=== PATIENT | male | born 1970 | race Caucasian/White ===

== ENCOUNTER 2022-05-27 08:26 | Outpatient (CLI) | payer OTHER, SELFPAY ==
[2022-05-27 13:53] LABS: Chloride* 101 mmol/L (96-114); Sodium* 140 mmol/L (135-149)
[2022-05-27 13:54] LABS: Potassium* 4.5 mmol/L (3.6-5.1)
[2022-05-27 13:56] LABS: Carbon Dioxide* 31 mmol/L (20-32); Creatinine* 1.1 mg/dL (0.5-1.5); Estimated Glomerular Filt Rate 80 ml/min
[2022-05-27 13:57] LABS: Blood Urea Nitrogen* 19 mg/dL (7-30); Calcium* 9.7 mg/dL (8.4-10.6); Glucose* 97 mg/dL (60-115)
== END 2022-05-27 08:27 | disposition home or self-care (01) ==
LOC: LKVREF 08:26
PROVIDERS: PCP Physician Assistant Medical; Visit Provider Emergency Medicine
DX: Z01.818 Encounter for other preprocedural examination (principal)
CPT/HCPCS: 80048

== ENCOUNTER 2022-06-04 09:15 | Outpatient (CLI) | payer OTHER, SELFPAY ==
--- NOTE | 2022-06-04 10:45 | W.ANESCHARGE ---
Anesthesia Charges Start Date/Time Anesthesia Start Date: 06/04/22 Anesthesia Start Time: 10:05 Stop Date/Time Anesthesia Stop Date: 06/04/22 Anesthesia Stop Time: 10:42 Summary Emergency: No
--- NOTE | 2022-06-04 14:43 | W.ANESCHARGE ---
Anesthesia Charges Start Date/Time Anesthesia Start Date: 06/04/22 Anesthesia Start Time: 10:05 Stop Date/Time Anesthesia Stop Date: 06/04/22 Anesthesia Stop Time: 10:42 Summary Emergency: No
== END 2022-06-04 09:16 | disposition home or self-care (01) ==
LOC: OP CLINIC 09:17
PROVIDERS: PCP Physician Assistant Medical; Visit Provider Surgery
DX: Z12.11 Encounter for screening for malignant neoplasm of colon (principal); K63.5 Polyp of colon; Z86.010 Personal history of colon polyps
CPT/HCPCS: 00811; 45385; 88305; J2704

== ENCOUNTER 2022-11-26 09:14 | Outpatient (CLI) | payer OTHER, SELFPAY | END 2022-11-26 09:15 | disposition home or self-care (01) | LOC: NFLDREF 11-28 08:39 | PROVIDERS: PCP Physician Assistant Medical; Referring Provider Physician Assistant Medical; Visit Provider Physician Assistant Medical | DX: Z00.00 Encounter for general adult medical examination without abnormal findings (principal); R73.03 Prediabetes; Z13.6 Encounter for screening for cardiovascular disorders; Z12.5 Encounter for screening for malignant neoplasm of prostate | CPT/HCPCS: 80053; 80061; 82043; 82570; 84153 ==

== ENCOUNTER 2024-01-17 08:34 | Outpatient (CLI) | payer OTHER, SELFPAY | END 2024-01-17 08:35 | disposition home or self-care (01) | LOC: NFLDREF 01-19 04:41 | PROVIDERS: PCP Physician Assistant Medical; Referring Provider Physician Assistant Medical; Visit Provider Physician Assistant Medical | DX: Z00.00 Encounter for general adult medical examination without abnormal findings (principal); E78.5 Hyperlipidemia, unspecified; I10 Essential (primary) hypertension; R73.03 Prediabetes | CPT/HCPCS: 80053; 80061 ==

== ENCOUNTER 2024-01-26 13:10 | Outpatient (CLI) | payer OTHER, SELFPAY | END 2024-01-26 13:11 | disposition home or self-care (01) | PROVIDERS: PCP Physician Assistant Medical; Visit Provider Physician Assistant Medical | DX: Z00.00 Encounter for general adult medical examination without abnormal findings (principal); R68.82 Decreased libido; R74.01 Elevation of levels of liver transaminase levels; I10 Essential (primary) hypertension; K76.0 Fatty (change of) liver, not elsewhere classified; M25.50 Pain in unspecified joint; Z12.5 Encounter for screening for malignant neoplasm of prostate | CPT/HCPCS: 84443; 84550; G0103 ==

== ENCOUNTER 2024-05-31 12:01 | Outpatient (CLI) | payer OTHER, SELFPAY | END 2024-05-31 12:02 | disposition home or self-care (01) | LOC: LKVREF 12:02 | PROVIDERS: PCP Physician Assistant Medical; Visit Provider Physician Assistant Medical | DX: M25.469 Effusion, unspecified knee (principal); I25.10 Atherosclerotic heart disease of native coronary artery without angina pectoris; R68.82 Decreased libido; R74.01 Elevation of levels of liver transaminase levels; R73.03 Prediabetes; I10 Essential (primary) hypertension | CPT/HCPCS: 84484; 84550 ==

== ENCOUNTER 2024-06-13 08:22 | Outpatient (CLI) | payer OTHER, SELFPAY | END 2024-06-13 08:23 | disposition home or self-care (01) | LOC: NFLDREF 06-17 18:00 | PROVIDERS: PCP Physician Assistant Medical; Referring Provider Physician Assistant Medical; Visit Provider Physician Assistant Medical | DX: E78.5 Hyperlipidemia, unspecified (principal); I10 Essential (primary) hypertension | CPT/HCPCS: 80053; 80061 ==

== ENCOUNTER 2024-08-16 19:33 | Outpatient (CLI) | payer OTHER, SELFPAY ==
--- NOTE | 2024-08-29 12:22 | W.PM.SLEEP ---
Sleep Study Details Details Interpreting Provider: Wm Date of Sleep Study: 08/16/24 Sleep Study Details: STUDY TYPE:? Home unattended ? BMI:? 31 ORDERING PROVIDER:Darling Tavera INDICATION:? Concerned about sleep apnea ? SLEEP SUMMARY:? 457 minutes monitored RESPIRATORY SUMMARY:? AHI 32.3. Note the majority of the study was done in the supine position Low oxygen 79 6.1% of study oxygen less than 90% Snoring 75.8% PERIODIC LIMB MOVEMENTS OF SLEEP:? Not recorded CARDIAC:? Range 53-96, mean 73.8 beats per minute IMPRESSION:? Severe obstructive sleep apnea RECOMMENDATION: Treatment options include CPAP, dental appliance and/or airway expansion surgery. CPAP is most likely to be effective.
== END 2024-08-16 19:34 | disposition home or self-care (01) ==
LOC: SLEEP 19:36
PROVIDERS: PCP Physician Assistant Medical; Visit Provider Physician Assistant Medical
DX: G47.33 Obstructive sleep apnea (adult) (pediatric) (principal)
CPT/HCPCS: 95806

== ENCOUNTER 2024-09-03 03:36 | Emergency (ER) | payer OTHER, SELFPAY ==
[2024-09-03 03:39] VITALS: BP 125/85; PULSE 73; RESP 16; TEMP 36.1; O2SAT 96; BMI 28.2
--- OUTSIDE RECORDS SUMMARY | 2024-09-03 03:39 | XMS_ITS | Continuity of Care Document ---
Author Organization [facility] Address [address] [address] [place] [address] Phone Care Team Providers Care Shingle Bolt Cutter Name Role Phone Fozia Simon MD Unavailable Unavaila ble Allergies, Adverse Reactions, Alerts Substance Reaction Status Criticality Penicillins Active No Information Medications Medication Instructions Dosage Effective Dates (start - stop) Status Comments omeprazole 40 mg capsule,delayed release take 1 capsule by ORAL route every day before a meal 40 MG - Active needs office visit for refills Propecia 1 mg tablet take 1 tablet by oral route every day 1 MG - Active omeprazole 40 mg capsule,delayed release take 1 capsule by ORAL route every day before a meal 40 MG - No Longer Active Procedures Procedure Date Offic/outpt E&m [facility] Advance Directives Directive Yes / No Effective Date File Name No Information Encounters Encounter Description Practice Location Reason(s) For Visit Diagnoses Date Provider Providers Copied on Encounter [facility], [address] [address], [place], [id number], [place] tel:[phone] [facility] No Information [address] [facility] [address] [facility], [place], [id number] , [place]. tel:[phone] Offic/outpt E&m [facility], [address] [address], [place], [id number], [place] tel:[phone] [facility] GI Symptoms or Concerns (chief complaint) Chronic GERDSleep apnea in adultDietary counseling and surveillanceEssentia l (primary) hypertension [facility] [address] [facility], [place], [place], [id number] , [place]. tel:[phone] Referring Provider: Kendall Carmona MD, [address] [place], [address]. tel:[phone] Family History Family Member Type Diagnosis Age At Onset Daughter Problem (finding) Alive and well Mother Problem (finding) malignant neoplasm of o vary Son Problem (finding) Alive and well Brother Problem (finding) Alive and well Payers Payer name Insurance type Covered democrat ID Rosario clark(s) [employer] CI [id number] Social History Type Description Quantity Date Captured Comments Alcohol Use Details Unknown Caffeine Use Details Unknown Tobacco Use Status No Information Smoking Status No Information Sex Male Chief Complaint And Reason For Visit No Information Reason For Referral Reason For Referral No Information Plan Of Treatment Date Type Action Status Goal Lifestyle education jamesin g diet completed History Of Present Illness Encounter Date Complaint History Of Prese nt Illness GI Symptoms or Concerns Raf ayala is a pleasant 46-year-old male with history of obesity, sleep apnea, atrial fibrillation, hypertension, and colon polyps, whom I saw in clinic today in referral for reflux symptoms. He has had reflux symptoms for about the past year. However, he thinks his symptoms have gotten worse since the spring. The spring, he was diagnosed with a number of medical conditions. Initially, he had bronchitis, but then was subsequently diagnosed with influenza. He also developed atrial fibrillation. He also developed staph infection in one of his arms that required antibiotics. He has also had a sleep study that showed sleep apnea. This occurred after he fell asleep on a bus and somebody told him his snoring sounded like there was something loose flapping around in the back of his throat.With his reflux symptoms, he describes heartburn and regurgitation. The regurgitation occurs if he eats spicy food and too close to time he goes to bed. With this, he wakes up coughing. He Functional Status Date Functional Assessmen t No Information Instructions Date Instruction Additional Infor [place] 1. Increase omeprazo le to 40 mg daily.2. Pepcid as needed.3. Follow up in three months.4. Encouraged weight loss and avoiding eating before going to bed by two to three hours.5. Reflux handout given.6. If 40 mg daily is not helpful, then I will increase it to twice-daily dosing.Thank you for allowing me to participate in the care of your patient. Please feel free to call with any questions or concerns. Related to Chronic GERD gerd Related to Sleep apnea in adult Lifestyle education regarding di et Related to Dietary counseling and surveillance Assessments Type Assessment Date No Information Patient Care Teams Name Effective Dates (start - stop) Status Members No Information
--- OUTSIDE RECORDS SUMMARY | 2024-09-03 03:39 | XMS_ITS | Clinical Summary ---
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 Active metFORMIN (GLUCOPHAGE XR) 500 mg Extended-Release tablet Take 1,000 mg by mouth once daily. Active omeprazole (PRILOSEC) 20 mg Delayed-Release capsule Take 20 mg by mouth once daily. Active ticagrelor (BRILINTA) 90 mg tabletIndications:S T elevation myocardial infarction (STEMI) involving other coronary artery of inferior wall (HC) Take 1 Tablet (90 mg) by mouth two times daily. 180 Tablet 3 05/25/2024 9:56 AM CDT 4 Active aspirin chewable 81 mg chewable tabletIndications:S T elevation myocardial infarction (STEMI) involving other coronary artery of inferior wall (HC) Chew 1 Tablet (81 mg) by mouth once daily with a meal. 90 Tablet 3 05/25/2024 9:56 AM CDT 4 Active rosuvastatin (CRESTOR) 20 mg tabletIndications:S T elevation myocardial infarction (STEMI) involving other coronary artery of inferior wall (HC),Dyslipidemia Take 1 Tablet (20 mg) by mouth once daily with evening meal. 90 Tablet 3 05/25/2024 12:58 PM CDT 4 Active nitroglycerin (NITROSTAT) 0.4 mg sublingual tabletIndications:S T elevation myocardial infarction (STEMI) involving other coronary artery of inferior wall (HC),CAD, multiple vessel Place 1 Tablet (0.4 mg) under the tongue every 5 minutes if needed for Chest Pain. Up to 3 tablets in 15 minutes. 25 Tablet 3 05/25/2024 12:58 PM CDT 4 Active dapagliflozin propanediol (Farxiga) 10 mg tabletIndications:S T elevation myocardial infarction (STEMI) involving other coronary artery of inferior wall (HC),CAD, multiple vessel Take 1 Tablet (10 mg) by mouth once daily. 90 Tablet 3 4 Active isosorbide mononitrate (IMDUR) 30 mg extended release tablet 24 HourIndications:ST elevation myocardial infarction (STEMI) involving other coronary artery of inferior wall (HC),CAD, multiple vessel Take 1 Tablet (30 mg) by mouth once daily. 90 Tablet 3 4 Active metoprolol succinate (TOPROL XL) 100 mg Sustained-Release tabletIndications:S T elevation myocardial infarction (STEMI) involving other coronary artery of inferior wall (HC),CAD, multiple vessel Take 1 Tablet (100 mg) by mouth once daily. 90 Tablet 3 4 Active valsartan (DIOVAN) 80 mg tabletIndications:C AD, multiple vessel,Ischemic cardiomyopathy Take 1 Tablet (80 mg) by mouth once daily. 90 Tablet 3 4 Active mupirocin 2% ointmentIndications :Coronary artery disease involving [place] coronary artery of [place] heart with unstable angina pectoris (HC) Using Q-tip, apply small amount to both nostrils evening before and morning of surgery 22 g 5 Active chlorhexidine (Peridex) 0.12 % solutionIndications :Coronary artery disease involving [place] coronary artery of [place] heart with unstable angina pectoris (HC) Swish and spit 15 ml by mouth the night before and on the morning of surgery 118 mL 5 Active ofloxacin 0.3 % ophthalmic (OCUFLOX) 0.3 % ophthalmic solution INSTILL 1 DROP IN LEFT EYE THREE TIMES DAILY 5 Active Active Problems Problem Noted Date Diagnosed Date Ischemic cardiomyopathy 05/25/2024 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 05/24/2024 HTN (hypertension) 05/24/2024 Obesity 05/24/2024 Type 2 diabetes mellitus, wi thout long-term current use of insulin 05/24/2024 ST elevation myocardial infa rction involving right coronary artery 05/23/2024 Paroxysmal atrial fibrillation 02/08/2017 Candidiasis of mouth 08/02/2005 Dyslipidemia 08/02/2002 Overview (04/19/2006): 6 month, then qiut Alopecia, unspecified 08/02/1999 Encounters Date Type Department Care Team Description 08/30/2024 1:00 PM RESIDENCE LIFE DIRECTOR - 08/30/2024 11:59 PM RESIDENCE LIFE DIRECTOR Hospital Encounter [address] [address] 08/30/2024 Travel 08/29/2024 Hospital Encounter [facility] [address] [place] [address] Som Diaz MD 08/25/2024 7:30 AM RESIDENCE LIFE DIRECTOR - 08/25/2024 11:59 PM RESIDENCE LIFE DIRECTOR Hospital Encounter [address] [address] 08/25/2024 Telephone [facility] [address] [place] [address] Som Diaz MD Surgery Scheduled (Cancel / to reschedule) 08/24/2024 Telephone [facility] [address] [place] [address] Willis Taveras PA Results 08/24/2024 Telephone [facility] [address] [place] [address] Som Diaz MD Form (FMLA) 08/23/2024 1:30 PM RESIDENCE LIFE DIRECTOR Nurse/Clinic Staff Only [facility] [address] [place] [id number] Cardiovascular Diagnostic Testing (EKG was performed for consult with Dr. Diaz.) 08/23/2024 1:00 PM RESIDENCE LIFE DIRECTOR Office Visit [facility] [address] [place] [address] Som Diaz MD Consult (Patient reports he got eye infection in left eye and went to eye doctor on wednesday (08/21), eye doctor wondering if patient can take prednisone eye drop. ) 08/23/2024 7:30 AM RESIDENCE LIFE DIRECTOR - 08/23/2024 11:59 PM RESIDENCE LIFE DIRECTOR Hospital Encounter [address] [address] 08/23/2024 Travel 08/21/2024 Orders Only [facility] Scanner 1 scan: (1-Ord) [facility], 08/21/2024 08/21/2024 Telephone [facility] [address] [place] [address] Som Diaz MD Questions 08/18/2024 7:30 AM RESIDENCE LIFE DIRECTOR - 08/18/2024 11:59 PM RESIDENCE LIFE DIRECTOR Hospital Encounter [address] [address] 08/17/2024 8:57 AM RESIDENCE LIFE DIRECTOR - 08/17/2024 11:59 PM RESIDENCE LIFE DIRECTOR Hospital Encounter [facility] [address] [place] [address] Erika Contreras PA CAD, multiple vessel 08/17/2024 8:23 AM RESIDENCE LIFE DIRECTOR - 08/17/2024 8:56 AM RESIDENCE LIFE DIRECTOR Hospital Encounter [facility] [address] [place] [address] Som Diaz MD Coronary artery disease involving clark's [place] coronary artery of [place] heart with unstable angina pectoris (HC) 08/17/2024 7:45 AM RESIDENCE LIFE DIRECTOR - 08/17/2024 8:22 AM RESIDENCE LIFE DIRECTOR Hospital Encounter [facility] [address] [place] [address] Erika Contreras PA CAD, multiple vessel; Ischemic cardiomyopathy 08/17/2024 Travel 08/14/2024 7:30 AM RESIDENCE LIFE DIRECTOR - 08/14/2024 11:59 PM RESIDENCE LIFE DIRECTOR Hospital Encounter [place] [address] [address] [address] [address] 08/11/2024 7:30 AM RESIDENCE LIFE DIRECTOR - 08/11/2024 11:59 PM RESIDENCE LIFE DIRECTOR Hospital Encounter [place] [address] [facility] [place] [address] 08/09/2024 7:30 AM RESIDENCE LIFE DIRECTOR - 08/09/2024 11:59 PM RESIDENCE LIFE DIRECTOR Hospital Encounter [place] [address] [facility] [place] [address] 08/09/2024 Travel 08/04/2024 2:00 PM RESIDENCE LIFE DIRECTOR - 08/04/2024 11:59 PM RESIDENCE LIFE DIRECTOR Hospital Encounter [place] [address] [facility] [place] [address] 07/31/2024 7:30 AM RESIDENCE LIFE DIRECTOR - 07/31/2024 11:59 PM RESIDENCE LIFE DIRECTOR Hospital Encounter [place] [address] [place] [address] 07/31/2024 Telephone [facility] [address] [place] [address] Som Diaz MD Surgery Scheduled (Pre cardiac surgery planning) 07/28/2024 7:27 AM RESIDENCE LIFE DIRECTOR - 07/28/2024 11:59 PM RESIDENCE LIFE DIRECTOR Hospital [facility] [place] [address] [facility] [place] [address] 07/28/2024 Orders Only [facility] [address] [place] [address] Som Diaz MD <No scans attached> 07/20/2024 2:00 PM RESIDENCE LIFE DIRECTOR Telemedicine [facility] [address] [place] [address] Erika Contreras PA Follow Up 07/17/2024 7:30 AM RESIDENCE LIFE DIRECTOR - 07/17/2024 11:59 PM RESIDENCE LIFE DIRECTOR Hospital Encounter [place] [address] [place] [address] 06/28/2024 7:30 AM RESIDENCE LIFE DIRECTOR - 06/28/2024 11:59 PM RESIDENCE LIFE DIRECTOR Hospital Encounter [place] [address] [place] [address] 06/26/2024 7:30 AM RESIDENCE LIFE DIRECTOR - 06/26/2024 11:59 PM RESIDENCE LIFE DIRECTOR Hospital Encounter [place] [address] [place] [address] 06/23/2024 7:30 AM RESIDENCE LIFE DIRECTOR - 06/23/2024 11:59 PM RESIDENCE LIFE DIRECTOR Hospital Encounter [place] [address] [place] [address] 06/19/2024 7:30 AM RESIDENCE LIFE DIRECTOR - 06/19/2024 11:59 PM RESIDENCE LIFE DIRECTOR Hospital Encounter [place] [address] [place] [address] 06/19/2024 Travel 06/16/2024 7:30 AM RESIDENCE LIFE DIRECTOR - 06/16/2024 11:59 PM RESIDENCE LIFE DIRECTOR Hospital Encounter [place] [address] [place] [address] 06/14/2024 7:30 AM RESIDENCE LIFE DIRECTOR - 06/14/2024 11:59 PM RESIDENCE LIFE DIRECTOR Hospital Encounter [place] [address] [place] [address] 06/13/2024 9:06 AM RESIDENCE LIFE DIRECTOR - 06/13/2024 11:59 PM RESIDENCE LIFE DIRECTOR Hospital Encounter [place] [address] [facility] [place] [address] [place] elevation myocardial infarction (STEMI) involving other coronary artery of inferior wall (HC) 06/13/2024 Travel 06/12/2024 7:30 AM RESIDENCE LIFE DIRECTOR - 06/12/2024 11:59 PM RESIDENCE LIFE DIRECTOR Hospital Encounter [address] [address] 06/07/2024 7:30 AM RESIDENCE LIFE DIRECTOR - 06/07/2024 11:59 PM [facility] Hospital Encounter [address] [address] 06/05/2024 2:30 PM RESIDENCE LIFE DIRECTOR Office Visit [facility] [address] [facility] [address] [facility] [address] [place] [address] Erika Contreras PA Follow Up ( 1-2WK [facility] F/U); Refill Request (Farxiga, metoprolol, valsartan and isosorbide ); Concerns (Pt denies chest discomfort, edema, sob, dizziness and palpitations at this time ); Medication Management (Per pt states that he wants to discuss about medications he is on (please advice)) 06/05/2024 7:30 AM RESIDENCE LIFE DIRECTOR - 06/05/2024 11:59 PM [facility] Hospital Encounter [address] [address] 06/05/2024 Travel 06/05/[address] [address] Mensing, Darby C from Last 3 Months Immunizations Name Administration Dates Next Due INFLUENZA, IIV3 PF (AGE >= 6 MO) 05/25/2024 Td, Preservative Free (age >= 7 Years) 6 Family History Medical History Relation Name Comments GI Disease Father Cancer Mother ovarian Cancer-colon Paternal Grandfather Heart Disease Paternal Grandfather Heart Disease Paternal Uncle Relation Name Status Comments Brother Alive Father Alive Mother Paternal Grandfather Paternal Uncle Sister Alive Social History Tobacco Use Types Packs/Day Years Used Date Smoking Tobacco: Never Smokeless Tobacco: Never Tobacco Cessation:Counseling Given: No Alcohol Use Standard Drinks/Week Comments Yes 0 (1 standard drink = 0.6 oz pur e alcohol) 2 drinks per month PHQ-2 Answer Date Recorded PHQ-2 TOTAL SCORE 0 05/30/2024 Social Connections Answer Date Recorded Do you often feel lonely or isolated from those around you? 0 05/24/2024 Financial Resource Strain Answer Date R ecorded Difficulty of Paying Living Expenses 3 05/24/2024 Difficulty of Paying Living Expenses Not on file 05/24/2024 Food Insecurity Answer Date Recorded Do you worry your food will run out before you are able to buy more? 1 05/24/2024 Transportation Needs Answer Date Record ed Does lack of transportation keep you from medica l appointments? 1 05/24/2024 Does lack of transportation keep you from work, meetings or getting things that you need? 1 05/24/2024 Housing Stability Answer Date Recorded What is your housing situation today? 1 05/24/2024 Interpersonal Safety Answer Date Record ed Are you being hit, kicked, p ushed or yelled at (see row info)? No 05/24/2024 Interpersonal Safety Abuse 12 - 18 Not on file 05/24/2024 Interpersonal Safety Ambulatory Vulnerability No t on file 05/24/2024 Utilities Answer Date Recorded Do you have trouble paying f or utilities (for example, heat, electricity, water, phone)? 1 05/24/2024 Sex and Gender Information Value Date Recorded Sex Assigned at Not on file Legal Sex Male 6:38 AM RESIDENCE LIFE DIRECTOR Gender Identity Not on file Sexual Orientation Not on file Obstetrics History Last Filed Vital Signs Vital Sign Reading Time Taken Comments Blood Pressure 108/60 08/30/2024 1:00 PM RESIDENCE LIFE DIRECTOR Pulse 74 08/30/2024 1:00 PM RESIDENCE LIFE DIRECTOR Temperature 37.1 C (98.7 F) 05/25/2024 8:12 AM CDT Respiratory Rate 16 08/23/2024 1:10 PM RESIDENCE LIFE DIRECTOR Oxygen Saturation 96% 08/23/2024 1:10 PM RESIDENCE LIFE DIRECTOR Inhaled Oxygen Concentration - - Weight 94.3 kg (208 lb) 08/30/2024 1:00 PM RESIDENCE LIFE DIRECTOR Height 177.8 cm (5' 10) 08/30/2024 1:00 PM RESIDENCE LIFE DIRECTOR Body Mass Index 29.84 08/30/2024 1:00 PM RESIDENCE LIFE DIRECTOR Plan of Treatment Upcoming Encounters Date Type Department Care Team (Late st Contact Info) Description 09/04/2024 7:30 AM RESIDENCE LIFE DIRECTOR Appointment [address] [address] 09/06/2024 7:30 AM RESIDENCE LIFE DIRECTOR Appointment [address] [place] [address] 09/08/2024 7:30 AM RESIDENCE LIFE DIRECTOR Appointment [address] [place] [address] 09/11/2024 7:30 AM RESIDENCE LIFE DIRECTOR Appointment [address] [address] 09/13/2024 7:30 AM RESIDENCE LIFE DIRECTOR Appointment [address] [place] [address] Health Maintenance Due Date Last Done Comments Tdap 1979 HIV for age 15-65 1983 Hepatitis C screening for ag e 18-79 1986 Hepatitis B series for Diabe eliu (1 of 3 - 19+ 3-dose series) 1987 Pneumococcal series for age 50+ (1 of 2 - PCV) 1987 Colonoscopy through age 75 2013 Tetanus booster 04/19/2016 04/19/2006 Zoster (shingles) series for age 50+ (1 of 2) 2018 COVID-19 vaccine series ( - season) 2024 11/16/2020, 10/22/2020 BMI (ht and wt on same day) for age 18+ 06/05/2025 06/05/2024 Depression screening for age 12+ 06/05/2025 06/05/2024, 06/02/2024, 05/31/2024, Additional history exists Lipids for age 45-75 05/23/2029 05/23/2024, 04/19/20 06 Influenza for age 50-64 Completed 05/25/2024 Procedures Procedure Name Priority Date/Time Associated Diagnosis Comments SCAN-CARDIAC REHABILITATION 08/30/2024 1:08 PM RESIDENCE LIFE DIRECTOR SCAN-CARDIAC REHABILITATION 08/25/2024 7:40 AM RESIDENCE LIFE DIRECTOR EKG 12 LEAD Routine 08/23/2024 1:08 PM RESIDENCE LIFE DIRECTOR Coronary artery disease involving clark's point coronary artery of [place] heart with unstable angina pectoris (HC) SCAN-CARDIAC REHABILITATION 08/23/2024 7:32 AM RESIDENCE LIFE DIRECTOR SCAN-EYE EXAM 08/21/2024 12:00 AM RESIDENCE LIFE DIRECTOR SCAN CORRESP-EKG RESULTS 08/18/2024 1:16 PM RESIDENCE LIFE DIRECTOR SCAN-CARDIAC REHABILITATION 08/18/2024 7:36 AM RESIDENCE LIFE DIRECTOR US VEIN MAPPING LOWER EXTREMITY BILATERAL Routine 08/17/2024 10:53 AM RESIDENCE LIFE DIRECTOR CAD, multiple vessel CTA CHEST - RAD DUAL READ Routine 08/17/2024 8:31 AM RESIDENCE LIFE DIRECTOR Coronary artery disease involving [place] coronary artery of [place] heart with unstable angina pectoris (HC) ECHO TTE LIMITED W CONTRAST Routine 08/17/2024 8:23 AM RESIDENCE LIFE DIRECTOR CAD, multiple vessel Ischemic cardiomyopathy CREATININE,ISTAT Routine 08/17/2024 8:13 AM RESIDENCE LIFE DIRECTOR SCAN-CARDIAC REHABILITATION 08/14/2024 7:37 AM RESIDENCE LIFE DIRECTOR SCAN-CARDIAC REHABILITATION 08/11/2024 8:33 AM RESIDENCE LIFE DIRECTOR SCAN-CARDIAC REHABILITATION 08/09/2024 7:35 AM RESIDENCE LIFE DIRECTOR SCAN-CARDIAC REHABILITATION 08/04/2024 2:08 PM RESIDENCE LIFE DIRECTOR SCAN-CARDIAC REHABILITATION 07/31/2024 7:38 AM RESIDENCE LIFE DIRECTOR SCAN-CARDIAC REHABILITATION 07/28/2024 7:31 AM RESIDENCE LIFE DIRECTOR SCAN-CARDIAC REHABILITATION 07/17/2024 7:35 AM RESIDENCE LIFE DIRECTOR SCAN-CARDIAC REHABILITATION 06/28/2024 7:36 AM RESIDENCE LIFE DIRECTOR SCAN-CARDIAC REHABILITATION 06/26/2024 7:37 AM RESIDENCE LIFE DIRECTOR SCAN-CARDIAC REHABILITATION 06/23/2024 7:36 AM RESIDENCE LIFE DIRECTOR SCAN-CARDIAC REHABILITATION 06/19/2024 7:39 AM RESIDENCE LIFE DIRECTOR SCAN-CARDIAC REHABILITATION 06/16/2024 7:39 AM RESIDENCE LIFE DIRECTOR SCAN-CARDIAC REHABILITATION 06/14/2024 7:36 AM RESIDENCE LIFE DIRECTOR HEMOGLOBIN Today 06/13/2024 9:[address] elevation myocardial infarction (STEMI) involving other coronary artery of inferior wall (HC) BASIC METABOLIC PANEL Today 06/13/2024 9:[address] elevation myocardial infarction (STEMI) involving other coronary artery of inferior wall (HC) SCAN-CARDIAC REHABILITATION 06/12/2024 7:32 AM RESIDENCE LIFE DIRECTOR SCAN-CARDIAC REHABILITATION 06/07/2024 7:33 AM RESIDENCE LIFE DIRECTOR SCAN-CARDIAC REHABILITATION 06/05/2024 7:36 AM RESIDENCE LIFE DIRECTOR SCAN-CARDIAC REHABILITATION 06/05/2024 7:36 AM RESIDENCE LIFE DIRECTOR LIPID PANEL GAVIN 05/23/2024 1:22 PM CDT from Last 3 Months or Most Recently Relevant to Health Maintenance Results * SCAN-CARDIAC REHABILITATION (08/30/2024 1:08 PM RESIDENCE LIFE DIRECTOR) Only the most recent of21 resultswithin the time period is included. us Scanner OTHER Final Result * EKG 12 LEAD (08/23/2024 1:08 PM RESIDENCE LIFE DIRECTOR) Interpretation Normal sinus rhythm Normal ECG Ventricular Rate 62 BPM Atrial Rate 62 BPM P-R Interval 166 ms QRS Duration 86 ms QT 418 ms QTc 424 ms P Elizabeth 23 degrees R Elizabeth 34 degrees T Elizabeth 23 degrees 08/23/2024 1:08 PM RESIDENCE LIFE DIRECTOR 08/23/2024 3:03 PM RESIDENCE LIFE DIRECTOR us Som Diaz MD EKG ORD Final Res ult * SCAN-EYE EXAM (08/21/2024 12:00 AM RESIDENCE LIFE DIRECTOR) us Scanner OTHER Final Result * SCAN CORRESP-EKG RESULTS (08/18/2024 1:16 PM RESIDENCE LIFE DIRECTOR) Narrative 08/18/2024 1:16 PM RESIDENCE LIFE DIRECTOR Ordered by an unspecified provider. us Other Clinical Staff OTHER Final Resul t * US VEIN MAPPING LOWER EXTREMITY BILATERAL (08/17/2024 10:53 AM RESIDENCE LIFE DIRECTOR) Anatomical Region Laterality Modality LEGS, LEG L, LEG R Ultrasound 08/17/2024 10:1 3 AM RESIDENCE LIFE DIRECTOR Narrative 08/18/2024 1:03 PM RESIDENCE LIFE DIRECTOR VASCULAR ULTRASOUND REPORT BIANCA CERVANTES : 1970 Study Date: 08/17/2024 10:13:12 AM Age: 54 years Tech: AVEL Gender: M Referring MD: ERIKA CONTRERAS Site: [facility] Study performed: Vein mapping, (bilateral). Indication for study: pre-op CABG Study Quality: Good TECHNIQUE: Lower/upper extremity veins were examined with duplex ultrasound, color-flow and spectral Doppler per exam protocol. Vein compressibility by transducer pressure was used to evaluate presence/absence of DVT/SVT. Venous flow and competence was evaluated by flow augmentation maneuvers per exam protocol. Insufficiency studies were performed with the patient in upright position, with vein diameters measured in mm, and reflux. IMPRESSION: 1. Bilateral great and small saphenous vein measurements as detailed below. 2. No evidence of deep or superficial vein thrombosis in the right lower extremity. 3. No evidence of deep or superficial vein thrombosis in the left lower extremity. COMPARISON: No prior study available for comparison. FINDINGS: Right Lower Extremity: No evidence of deep or superficial vein thrombosis in the right lower extremity. Left Lower Extremity: No evidence of deep or superficial vein thrombosis in the left lower extremity. MEASUREMENTS: + +--------+-----+--------+----+ RIGHT RIGHT LEFT LEFT Compress DVT Compress DVT SVT SVT + +--------+-----+--------+----+ CFV yes None yes None + +--------+-----+--------+----+ PFV yes None yes None + +--------+-----+--------+----+ SAPH/FEM JUNCT yes None yes None + +--------+-----+--------+----+ FV yes None yes None + +--------+-----+--------+----+ POPV yes None yes None + +--------+-----+--------+----+ PTV yes yes + +--------+-----+--------+----+ PERONEAL yes yes + +--------+-----+--------+----+ GSV yes None yes None + +--------+-----+--------+----+ SSV yes None yes None + +--------+-----+--------+----+ Vein Map +--------+--------+ +--------+--------+ RIGHT LEFT +--------+--------+ +--------+--------+ Compress Diameter Compress Diameter (mm) (mm) +--------+--------+ +--------+--------+ yes SFJ yes +--------+--------+ +--------+--------+ yes 4.1 GSV PROX THIGH yes 5.5 +--------+--------+ +--------+--------+ yes 3.1 GSV MID THIGH yes 2.8 +--------+--------+ +--------+--------+ yes 3.4 GSV DIST THIGH yes 3.0 +--------+--------+ +--------+--------+ yes 3.3 GSV KNEE yes 3.4 +--------+--------+ +--------+--------+ yes 3.3 GSV UPPER CALF yes 2.7 +--------+--------+ +--------+--------+ yes 3.0 GSV MID CALF yes 2.9 +--------+--------+ +--------+--------+ yes 3.2 GSV LOW CALF yes 2.5 +--------+--------+ +--------+--------+ yes 4.6 SPJ yes 5.2 +--------+--------+ +--------+--------+ yes 3.8 SSV PRX CALF yes 3.0 +--------+--------+ +--------+--------+ yes 3.4 SSV MID CALF yes 2.3 +--------+--------+ +--------+--------+ yes 4.3 SSV DIST CALF yes 2.9 +--------+--------+ +--------+--------+ = Can't evaluate Susana Frias MD. Electronically signed on 08/18/2024 1:03:50 PM This study was performed and interpreted by a service accredited by the Intersocietal Accreditation Commission (IAC/Vascular), www.intersocietal.org/vascular Report generated by [employer]. Final Procedure Note Susana Frias MD - 08/18/2024 VASCULAR ULTRASOUND REPORT BIANCA CERVANTES : 1970 Study Date: 08/17/2024 10:13:12 AM Age: 54 years Tech: AVEL Gender: M Referring MD: ERIKA CONTRERAS Site: [facility] Study performed: Vein mapping, (bilateral). Indication for study: pre-op CABG Study Quality: Good TECHNIQUE: Lower/upper extremity veins were examined with duplex ultrasound,color-flow and spectral Doppler per exam protocol. Vein compressibility bytransducer pressure was used to evaluate presence/absence of DVT/SVT.Venous flow and competence was evaluated by flow augmentation maneuversper exam protocol. Insufficiency studies were performed with the patientin upright position, with vein diameters measured in mm, and reflux. IMPRESSION: 1. Bilateral great and small saphenous vein measurements as detailedbelow. 2. No evidence of deep or superficial vein thrombosis in the right lowerextremity. 3. No evidence of deep or superficial vein thrombosis in the left lowerextremity. COMPARISON: No prior study available for comparison. FINDINGS: Right Lower Extremity: No evidence of deep or superficial vein thrombosis in the right lowerextremity. Left Lower Extremity: No evidence of deep or superficial vein thrombosis in the left lowerextremity. MEASUREMENTS: + +--------+-----+--------+----+ RIGHT RIGHT LEFT LEFT Compress DVT Compress DVT SVT SVT + +--------+-----+--------+----+ CFV yes None yes None + +--------+-----+--------+----+ PFV yes None yes None + +--------+-----+--------+----+ SAPH/FEM JUNCT yes None yes None + +--------+-----+--------+----+ FV yes None yes None + +--------+-----+--------+----+ POPV yes None yes None + +--------+-----+--------+----+ PTV yes yes + +--------+-----+--------+----+ PERONEAL yes yes + +--------+-----+--------+----+ GSV yes None yes None + +--------+-----+--------+----+ SSV yes None yes None + +--------+-----+--------+----+ Vein Map +--------+--------+ +--------+--------+ RIGHT LEFT +--------+--------+ +--------+--------+ Compress Diameter Compress Diameter (mm) (mm) +--------+--------+ +--------+--------+ yes SFJ yes +--------+--------+ +--------+--------+ yes 4.1 GSV PROX THIGH yes 5.5 +--------+--------+ +--------+--------+ yes 3.1 GSV MID THIGH yes 2.8 +--------+--------+ +--------+--------+ yes 3.4 GSV DIST THIGH yes 3.0 +--------+--------+ +--------+--------+ yes 3.3 GSV KNEE yes 3.4 +--------+--------+ +--------+--------+ yes 3.3 GSV UPPER CALF yes 2.7 +--------+--------+ +--------+--------+ yes 3.0 GSV MID CALF yes 2.9 +--------+--------+ +--------+--------+ yes 3.2 GSV LOW CALF yes 2.5 +--------+--------+ +--------+--------+ yes 4.6 SPJ yes 5.2 +--------+--------+ +--------+--------+ yes 3.8 SSV PRX CALF yes 3.0 +--------+--------+ +--------+--------+ yes 3.4 SSV MID CALF yes 2.3 +--------+--------+ +--------+--------+ yes 4.3 SSV DIST CALF yes 2.9 +--------+--------+ +--------+--------+ = Can't evaluate Susana Frias MD. Electronically signed on 08/18/2024 1:03:50 PM This study was performed and interpreted by a service accredited by theIntersocietal Accreditation Commission (IAC/Vascular),[email or web address]/vascular Report generated by [employer]. Final us Erika SHER US Final Result * CTA CHEST - DUAL READ (08/17/2024 8:31 AM RESIDENCE LIFE DIRECTOR) Anatomical Region Laterality Modality CHEST Computed Tomogra phy Impressions 08/21/2024 4:38 PM RESIDENCE LIFE DIRECTOR No significant incidental extracardiac findings. Please refer to printing machine mechanic's dictation for the cardiac CT report. Narrative 08/21/2024 4:38 PM RESIDENCE LIFE DIRECTOR Results are automatically released to your [employer] account once available, in compliance with federal regulations. This means that you may see your results before your provider has had a chance to review them. Please allow 2-3 business days for your provider to comment on the results. CT ANGIOGRAM OF THE THORACIC AORTA, 08/17/2024 INDICATION: Coronary artery disease, pre-bypass surgery planning. CONCLUSIONS: This is a dual read study - please review [facility] over-read below for incidental non cardiac findings. Normal aortic root when indexed to body surface area, 41 mm in greatest dimension (Z score 1.7, rqtp-ib-xagyyh ratio 6.7 cm2/m). Normal dimensions of the ascending aorta, arch, and descending thoracic aorta. No aortic coarctation or dissection. No atherosclerotic plaque in the thoracic aorta. Aortic valve morphology is trileaflet. TECHNIQUE: ECG-gated CT angiogram of the thoracic aorta with intravenous contrast Omnipaque 350, 95 cc, was performed on a Siemens SOMATOM Force CT scanner. The imaging protocol was individualized to minimize radiation exposure. The following ECG-gated acquisition protocol was used: Gated AO. Pulse range 300-300. Tube potential: 100 kV. Tube current: 1919 mAs. Total DLP: 401 mGy*cm; mSv: 5.6; CTDI: 18.6. Image post processing was performed on a [employer] Workstation. Images were reconstructed at a slice thickness of 1 mm with 1 mm overlap. There were no immediate complications. TECHNICAL QUALITY: Good. FINDINGS THORACIC AORTA: The aortic sinus of Valsalva is normal in size when indexed to body surface area and age, measuring 41 mm in greatest dimension (right coronary cusp to left coronary cusp 39 mm, left coronary cusp to noncoronary cusp 41 mm, noncoronary cusp to right coronary cusp 38 mm). There is no effacement of the sinotubular junction. The sinotubular junction measures 30 mm. The ascending aorta is normal in size, measuring 35 mm in greatest dimension at the mid level. No atherosclerosis in the ascending aorta. The aortic arch is normal in size, measuring 28 mm in greatest dimension. No atherosclerosis of the aortic arch. Normal branching pattern of the great vessels. The proximal great vessels are patent without appreciable stenosis. The descending thoracic aorta is normal in size, measuring 23 mm. No atherosclerosis of the descending aorta. No aortic coarctation or dissection. CARDIAC: Grossly normal left ventricular chamber size. Grossly normal right ventricular chamber size. Grossly normal left and right atrial size. No obvious atrial septal defect. No evidence of left atrial appendage thrombus. No intra-cardiac mass or thrombus. Aortic valve morphology is trileaflet. No evidence of abnormal thickening or calcification of the mitral and aortic valves. Normal pericardial thickness. No pericardial effusion. CORONARY ARTERIES: The study was not protocoled for evaluation of the coronary arteries. Right dominant coronary artery system. Coronary artery calcifications are present. Severe three-vessel disease is noted (previously known from invasive coronary angiogram). VESSELS: Normal pulmonary artery caliber. Normally connected pulmonary veins without stenosis or obstruction. NON-CARDIAC: Please review radiology report below for incidental non-cardiac findings. Simon Bonilla MD Cardiology [facility] JJO/car For Patients: As a result of the Century Cures Act, medical imaging exams and procedure reports are released immediately into your electronic medical record. You may view this report before your referring provider. If you have questions, please contact your health care provider. EXAM: OVERREAD: DETAILED [facility] EXTRACARDIAC OVERREAD OF CARDIAC CT LOCATION: [facility] DATE: 08/17/2024 INDICATION: Coronary artery disease involving [place] coronary artery of [place]ark[place] heart with unstable angina pectoris (HC). TECHNIQUE: Dose reduction techniques were used. COMPARISON: None. FINDINGS: LIMITED CHEST: Negative. LIMITED MEDIASTINUM: Fat-containing hiatal hernia. LIMITED UPPER ABDOMEN: Negative. us Som Diaz MD CT Final Res ult * ECHO TTE LIMITED W CONTRAST (08/17/2024 8:23 AM RESIDENCE LIFE DIRECTOR) EJECTION FRACTION 60-65% PROSOLV Anatomical Region Laterality Modality Ultrasound 08/17/2024 7:49 AM RESIDENCE LIFE DIRECTOR Narrative 08/17/2024 9:24 AM RESIDENCE LIFE DIRECTOR [address], [place] [address] Main: Transthoracic Echo Report BIANCA CERVANTES Mitchellmisty ID: [id number] Age: 54 : 1970 Ordering Provider: ERIKA CONTRERAS Exam Date: 08/17/2024 07:49 Gender: M Network Systems Operator: BRENDA Height: 70 in BSA: 2.14 m BP: 132 / 85 Weight: 212 lbs BMI: 30.4 kg/m HR: 60 Location: [facility] Rhythm: Normal Sinus Rhythm Procedure Components: Limited 2D imaging with contrast, Color Doppler, Limited Spectral Doppler Indications: Ischemic cardiomyopathy; CAD, multiple vessel Technical Quality: Fair Contrast: Definity Constrast Dose (ml): .30 [facility]#: [id number] Final Conclusion Previous Study: 05/23/2024 1. Limited echocardiogram for left ventricular systolic function 2. Normal left ventricular chamber size. Normal left ventricular systolic function. Estimated left ventricular ejection fraction is 60-65%. No regional wall motion abnormalities. 3. Normal right ventricular chamber size. Normal right ventricular systolic function. 4. Compared to TTE 05/23/2024, left ventricular ejection fraction and wall motion appear better Estimated EF: 60-65% FINDINGS Left Ventricle Normal left ventricular chamber size. Normal left ventricular systolic function. Estimated left ventricular ejection fraction is 60-65%. No regional wall motion abnormalities. Right Ventricle Normal right ventricular chamber size. Normal right ventricular systolic function. Aortic Valve No aortic stenosis Mitral Valve Trace mitral regurgitation MEASUREMENTS (Male / Female) Normal Values 2D MEASUREMENTS AND LV FUNCTION IVS Diastolic Thickness 0.815 cm < 1.1 cm / < 1.0 cm LV Diastolic Diameter PLAX 4.47 cm 4.2 - 5.9 / 3.9 - 5.3 cm LV Diastolic Diameter Index 2.09 cm/m LVPW Diastolic Thickness 0.825 cm < 1.1 cm / < 1.0 cm LV Systolic Diameter PLAX 3.57 cm LV Systolic Diameter Index 1.67 cm/m LVOT Diameter 2.2 cm LVOT Cardiac Output 3.56 l/min LVOT Cardiac Index 1.62 l/min m LVOT Stroke Volume 59.3 ml Stroke Volume Index 26.9 ml/m LV Ejection Fraction MOD BP 65.9 % >= 55 % LV Mass 116 g LV Mass Index 53.3 g/m AORTIC VALVE AV Peak Velocity 0.94 m/sec < 2.0 m/sec AV Peak Gradient 3.53 mmHg AV Mean Gradient 2 mmHg AV Velocity Time Integral 20.4 cm LVOT Peak Velocity 0.711 m/sec LVOT Velocity Time Integral 15.6 cm AV Area Cont Eq vti 2.9 cm AV Area Cont Eq pk 2.88 cm AV Dimensionless Index 0.763 HCM DATA LVOT PERLA (r) 2.02 mmHg Umm Pineda MD [facility] Accredited Site (Electronically Signed) Final Date: 17 August 2024 09:24 ICD-10 Codes: I25.5; I25.10 Procedure Note Umm Pineda MD - 08/17/[address], [place] [address] Main: Transthoracic Echo Report BIANCA CERVANTES Mitchellmisty ID: [id number] Age: 54 : 1970 Ordering Provider: ERIKA CONTRERAS Exam Date: 08/17/2024 07:49 Gender: M Network Systems Operator: BRENDA Height: 70 in BSA: 2.14 m BP: 132 / 85 Weight: 212 lbs BMI: 30.4 kg/m HR: 60 Location: [facility] Rhythm: Normal SinusRhythm Procedure Components: Limited 2D imaging with contrast, Color Doppler,Limited Spectral Doppler Indications: Ischemic cardiomyopathy; CAD, multiple vessel Technical Quality: Fair Contrast: Definity Constrast Dose (ml): .30 [facility]#: [id number] Final Conclusion Previous Study: 05/23/2024 1. Limited echocardiogram for left ventricular systolic function 2. Normal left ventricular chamber size. Normal left ventricular systolicfunction. Estimated left ventricular ejection fraction is 60-65%. No regional wall motion abnormalities. 3. Normal right ventricular chamber size. Normal right ventricularsystolic function. 4. Compared to TTE 05/23/2024, left ventricular ejection fraction andwall motion appear better Estimated EF: 60-65% FINDINGS Left Ventricle Normal left ventricular chamber size. Normal leftventricular systolic function. Estimated left ventricular ejection fraction is 60-65%. No regional wall motion abnormalities. Right Ventricle Normal right ventricular chamber size. Normal rightventricular systolic function. Aortic Valve No aortic stenosis Mitral Valve Trace mitral regurgitation MEASUREMENTS (Male / Female) Normal Values 2D MEASUREMENTS AND LV FUNCTION IVS Diastolic Thickness 0.815 cm < 1.1 cm / < 1.0cm LV Diastolic Diameter PLAX 4.47 cm 4.2 - 5.9 / 3.9 -5.3 cm LV Diastolic Diameter Index 2.09 cm/m LVPW Diastolic Thickness 0.825 cm < 1.1 cm / < 1.0cm LV Systolic Diameter PLAX 3.57 cm LV Systolic Diameter Index 1.67 cm/m LVOT Diameter 2.2 cm LVOT Cardiac Output 3.56 l/min LVOT Cardiac Index 1.62 l/min m LVOT Stroke Volume 59.3 ml Stroke Volume Index 26.9 ml/m LV Ejection Fraction MOD BP 65.9 % >= 55 % LV Mass 116 g LV Mass Index 53.3 g/m AORTIC VALVE AV Peak Velocity 0.94 m/sec < 2.0 m/sec AV Peak Gradient 3.53 mmHg AV Mean Gradient 2 mmHg AV Velocity Time Integral 20.4 cm LVOT Peak Velocity 0.711 m/sec LVOT Velocity Time Integral 15.6 cm AV Area Cont Eq vti 2.9 cm AV Area Cont Eq pk 2.88 cm AV Dimensionless Index 0.763 HCM DATA LVOT PERLA (r) 2.02 mmHg Umm Pineda MD [facility] Accredited Site (Electronically Signed) Final Date: 17 August 2024 09:24 ICD-10 Codes: I25.5; I25.10 Erika SHER ECHO ORD Final Result * (ABNORMAL) CREATININE,ISTAT (08/17/2024 8:13 AM RESIDENCE LIFE DIRECTOR) CREATININE, POCT 1.20(H) 0.57 - 1.11 mg/dL 08/17/2024 8:19 AM RESIDENCE LIFE DIRECTOR [facility] Comment:Caution: Patients ta radha Hydroxyurea have falsely increased iStat Creatinine results. Verify creatinine results ordering a Creatinine (75919.2) eGFR 71(L) >90 mL/min/1.7 3m2 08/17/2024 8:19 AM RESIDENCE LIFE DIRECTOR [facility] Comment:As of 2021, eG FR is calculated by the CKD-EPI creatinine equation without race adjustment. eGFR can be influenced by muscle mass, exercise, and diet. The reported eGFR is an estimation only and is only applicable if the renal function is stable. Blood BLOOD SPECIMEN / Unknown 08/17/2024 8:13 AM RESIDENCE LIFE DIRECTOR 08/17/2024 8:19 AM RESIDENCE LIFE DIRECTOR Erika SHER CHEMISTRY Final Result [facility] [address] INTERNAL [address]IP [phone] [place] [address] * HEMOGLOBIN (06/13/2024 9:17 AM RESIDENCE LIFE DIRECTOR) HEMOGLOBIN 15.0 13.5 - 17.5 g/dL 06/13/2024 9:21 AM RESIDENCE LIFE DIRECTOR [facility] MCV 86 80 - 100 fL 06/13/2024 9:21 AM RESIDENCE LIFE DIRECTOR [facility] Blood BLOOD SPECIMEN / Unknown Venipuncture / Unknown 06/13/2024 9:17 AM RESIDENCE LIFE DIRECTOR 06/13/2024 9:17 AM RESIDENCE LIFE DIRECTOR Erika SHER HEMATOLOGY Final Result [facility] [address] [place] [address], [place] [phone] * (ABNORMAL) BASIC METABOLIC PANEL (06/13/2024 9:17 AM RESIDENCE LIFE DIRECTOR) SODIUM 136 136 - 145 mmol/L 06/13/2024 9:45 AM RESIDENCE LIFE DIRECTOR [facility] POTASSIUM 4.7 3.5 - 5.1 mmol/L 06/13/2024 9:45 AM RESIDENCE LIFE DIRECTOR [facility] CHLORIDE 101 98 - 107 mmol/L 06/13/2024 9:45 AM RESIDENCE LIFE DIRECTOR [facility] CO2,TOTAL 27 22 - 29 mmol/L 06/13/2024 9:45 AM RESIDENCE LIFE DIRECTOR [facility] ANION GAP 8 5 - 18 06/13/2024 9:45 AM RESIDENCE LIFE DIRECTOR [facility] GLUCOSE 123(H) 70 - 99 mg/dL 06/13/2024 9:45 AM RESIDENCE LIFE DIRECTOR [facility] CALCIUM 9.5 8.8 - 10.4 mg/dL 06/13/2024 9:45 AM RESIDENCE LIFE DIRECTOR [facility] Comment: Reference ranges for this test were updated on 06/06/2024 to reflect our healthy population more accurately. Reference range changes are not retroactively applied to results, but previous results using the same methodology can be interpreted in the context of the new reference range. BUN 22(H) 6 - 20 mg/dL 06/13/2024 9:45 AM RESIDENCE LIFE DIRECTOR [facility] CREATININE 0.99 0.70 - 1.20 mg/dL 06/13/2024 9:45 AM RESIDENCE LIFE DIRECTOR [facility] BUN/CREAT RATIO 22(H) 10 - 20 9:45 AM RESIDENCE LIFE DIRECTOR [facility] eGFR 90(L) >90 mL/min/1.7 3m2 06/13/2024 9:45 AM RESIDENCE LIFE DIRECTOR [facility] Comment:As of 2021, eG FR is calculated by the CKD-EPI creatinine equation without race adjustment. eGFR can be influenced by muscle mass, exercise, and diet. The reported eGFR is an estimation only and is only applicable if the renal function is stable. Blood BLOOD SPECIMEN / Unknown Venipuncture / Unknown 06/13/2024 9:17 AM RESIDENCE LIFE DIRECTOR 06/13/2024 9:17 AM RESIDENCE LIFE DIRECTOR Erika SHER CHEMISTRY Final Result [facility] [address] [place] [address], * LIPID PANEL (05/23/2024 1:22 PM CDT) Pathologist [facility] CHOLESTEROL,TOTAL 166 100 - 199 mg/dL 05/23/2024 3:56 PM [facility] Comment: Cholesterol, Total Reference Ranges Desirable <200 mg/dL Borderline 200-239 mg/dL High >=240 mg/dL TRIGLYCERIDES 36 <150 mg/dL 05/23/2024 3:56 PM [facility] HDL CHOLESTEROL 42 >40 mg/dL 3:56 PM [facility] NON-HDL CHOLESTEROL 124 <145 mg/dl 05/23/2024 3:56 PM [facility] CHOL/HDL RATIO 3.95 <4.50 05/23/2024 3:56 PM [facility] LDL CHOLESTEROL 117 <=130 mg/dL 05/23/2024 3:56 PM CDT [facility] VLDL CHOLESTEROL 7 <=30 mg/dL 05/23/20 3:56 PM CDT [facility] Blood BLOOD SPECIMEN / Unknown Venipuncture / Unknown 05/23/2024 1:22 PM CDT 05/23/2024 1:38 PM CDT us Milana Das SIGNAL CONSTRUCTOR CHEMISTRY Final Result [facility] [address] [place] [id number] [place] [address] from Last 3 Months or Most Recently Relevant to Health Maintenance Insurance [employer] CHOICE Advance Directives Documents on File Type Date Recorded Patient Relations Liaison Expl anation Healthcare Directive 08/10/2024 025 * Full Code (Latest Code Status on File) Date Activated Date Inactivated Comments 05/23/2024 12:42 PM 05/25/2024 4:10 PM Question Answer Comments Code Status Discussion: Reviewed Preferences Care Teams Rose Grading Supervisor Relationship Specialty Start Date End Date Kaylee Tavera PA-C [address] [place] [address] PCP - General Emergency Medicine 05/23/24
--- NOTE | 2024-09-03 03:51 | ED_ITS ---
HPI - General Adult General Chief complaint: Fall/Minor Trauma Stated complaint: Fell six feet, back trauma Time Seen by Provider: 09/03/24 03:51 History of Present Illness HPI narrative: Pt fell at 0200 about 6 feet landed on concrete. Pt reports he got knocked out. Pt states he get knocked out easily. Pt did not hit his head. Pt landed on elbow and his back. Pt is also on blood thinners. 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 About 6 ft landing on his mid back. Apparently there was a loss of consciousness but denies hitting his head. He does not have any abdominal pain. No chest pain. Struck his right elbow in the fall. Concerning because is anticoagulated. He notes that historically passes out with pain or anticipated pain. Fall was about 2 hours prior to this interview. He is not having much pain in the elbow. His describing increasing generalized pain but some in the right lower and mid back. Related Data Home Medications ?Medication ?Instructions ?Recorded ?Confirmed aspirin 81 mg chewable tablet 1 tab PO DAILY 05/31/24 08/14/24 dapagliflozin propanediol 10 mg 10 mg PO DAILY 05/31/24 08/14/24 tablet (Farxiga) isosorbide mononitrate 30 mg 30 mg PO DAILY 05/31/24 08/14/24 tablet,extended release 24 hr metoprolol succinate 100 mg 100 mg PO DAILY 05/31/24 08/14/24 tablet,extended release 24 hr nitroglycerin 0.4 mg sublingual mg sublingual 05/31/24 08/14/24 tablet ticagrelor 90 mg tablet (Brilinta) 90 mg PO BID 05/31/24 08/14/24 valsartan 80 mg tablet 80 mg PO 08/15/24 Previous Rx's ?Medication ?Instructions ?Recorded fluticasone propionate 50 2 spray intranasal QDAY PRN 12/14/23 mcg/actuation nasal allergy symptoms #16 grams spray,suspension finasteride 5 mg tablet 2.5 mg (1/2 x 5 mg) PO QDAY #45 01/26/24 tabs metformin 500 mg tablet,extended 1,000 mg (2 x 500 mg) PO QDAY #180 02/21/24 release 24 hr tabs Diabetic Test Strips #100 ea 05/31/24 blood-glucose meter (Blood Glucose #1 ea 05/31/24 Monitoring kit) lancets #100 ea 05/31/24 lancing device (lancing device #1 ea 05/31/24 with lancets) rosuvastatin 20 mg tablet 20 mg PO QPM #90 tabs 05/31/24 Allergies Allergy/AdvReac Type Severity Reaction Status Date / Time penicillin V Allergy Intermediate anaphalaxis Verified 08/14/24 15:15 lisinopril Allergy Uncoded 08/14/24 15:15 Review of Systems Status of ROS: Reports: 6 or more systems reviewed and unremarkable except as noted in History and below [facility] Medical History History of ST elevation myocardial infarction (STEMI) (~05/23/24) ?I25.2 - Old myocardial infarction (ICD-10) Pneumonia ?J18.9 - Pneumonia, unspecified organism (ICD-10) Tick bite of buttock ?S30.860A - Insect bite (nonvenomous) of lower back and pelvis, initial encounter (ICD-10) ?W57.XXXA - Bitten or stung by nonvenomous insect and other nonvenomous arthropods, initial encounter (ICD-10) Cellulitis of finger of right hand ?L03.011 - Cellulitis of right finger (ICD-10) Peyronie disease ?N48.6 - Induration penis plastica (ICD-10) GERD (gastroesophageal reflux disease) ?K21.9 - Gastro-esophageal reflux disease without esophagitis (ICD-10) Elevated transaminase level ?R74.01 - Elevation of levels of liver transaminase levels (ICD-10) Hepatic steatosis ?K76.0 - Fatty (change of) liver, not elsewhere classified (ICD-10) Pre-diabetes ?R73.03 - Prediabetes (ICD-10) Hyperlipidemia ?E78.5 - Hyperlipidemia, unspecified (ICD-10) Atrial fibrillation ?I48.91 - Unspecified atrial fibrillation (ICD-10) JOANNA (obstructive sleep apnea) ?G47.33 - Obstructive sleep apnea (adult) (pediatric) (ICD-10) Surgical History History of coronary artery stent placement (~05/23/24) ?Z95.5 - Presence of coronary angioplasty implant and graft (ICD-10) History of umbilical hernia repair ?Z98.890 - Other specified postprocedural states (ICD-10) ?Z87.19 - Personal history of other diseases of the digestive system (ICD-10) History of colonoscopy ?Z98.890 - Other specified postprocedural states (ICD-10) Family History Mother Ovarian cancer, Onset Age: 69 Father Colonic polyp Diabetes Myocardial infarction Paternal Grandfather Colon cancer Social History Narrative: Julia. 3 kids. Never smoker. Does not use illicit drugs Occasional ( 3 x per month) alcohol consumption, binge drink those episodes Smoking Status: Never smoker Non-prescribed substance use: denies use service: No Exam Narrative: Exam Narrative: Pleasantly talkative. Breathing easily. No trauma to the head. Neck is supple nontender. Midline back nontender. He is sore with some mild erythema superior and lateral to the right SI joint. No reproducible tenderness to compression of the chest. There is some erythema and soft swelling consistent with hematoma about the elbow but he extends and flexes the elbow without difficulty. Supination and pronation of the forearm also is done without difficulty or pain. Lungs are clear. Heart in regular rate and rhythm. Cranial nerves 2-12 are intact. Pupils are equal briskly reactive. He is very much alert and energetic. No fluid at external ear canals. Const: Vital Signs, click to edit/add: Vital Signs - 24 hr 09/03/24 03:39 Temperature 97.0 F L Pulse Rate [Left P ulse Oximeter] 73 Respiratory Rate 16 Blood Pressure [Ri ght Upper Arm] 125/85 Pulse Oximetry 96 Oxygen Delivery Me thod Room Air Documenting provider has reviewed patient's vital signs: yes Course Vital Signs Vital signs: Initial Vital Signs Temperature 97.0 F L 09/03/24 03:39 Temperature Source Temporal Artery Scan 09/03/24 03:39 Pulse Rate 73 09/03/24 03:39 Pulse Rhythm Regular 09/03/24 03:39 Respiratory Rate 16 09/03/24 03:39 Blood Pressure 125/85 09/03/24 03:39 Blood Pressure Mean 98 09/03/24 03:39 Blood Pressure Position Sitting 09/03/24 03:39 Pulse Oximetry 96 09/03/24 03:39 Oxygen Delivery Method Room Air 09/03/24 03:39 Vital Signs Temperature 97.0 F L 09/03/24 03:39 Pulse Rate 73 09/03/24 03:39 Respiratory Rate 16 09/03/24 03:39 Blood Pressure 125/85 09/03/24 03:39 Pulse Oximetry 96 09/03/24 03:39 Oxygen Delivery Method Room Air 09/03/24 03:39 Temperature 97.0 F L 09/03/24 03:39 Pulse Rate 73 09/03/24 03:39 Respiratory Rate 16 09/03/24 03:39 Blood Pressure 125/85 09/03/24 03:39 Pulse Oximetry 96 09/03/24 03:39 Oxygen Delivery Method Room Air 09/03/24 03:39 Medications Administered Medications: Discontinued Medications Generic Name Dose Route Start Last Admin Trade Name Freq PRN Reason Stop Dose Admin Acetaminophen 1,000 mg 09/03/24 05:43 09/03/24 05:46 Acetaminophen 500 Mg Tablet PO 09/03/24 05:44 1,000 mg ONCE ONE Administration Medical Decision Making MDM Narrative Medical decision making narrative: Other than right elbow difficult to focus imaging. Does not have head injury. Does not have midline neck or back tenderness and mild tenderness in the right flank area. Perhaps would be prudent to check a urinalysis. Concerning is the syncopal event but this sounds to be typical for him. Syncope was not the reason for the fall. No sense of palpitations. Was not short of breath and without chest pain. Discussed pain management. With anticoagulation only taking acetaminophen and was given 1000 mg. Offered ice pack. Did wrap the right elbow with Chidi wrap over ice pack. Monitored over time in the emergency department became more generally sore. Ambulating to the bathroom and back. Urinalysis was essentially clear. No gross blood. See patient discharge plan for further discussion I would ice sore areas especially your right elbow couple of times daily over the next few days. Consider also keeping that right elbow wrapped somewhat to try to keep hematoma development to a minimum. See handout for some ideas for stretches for upper and lower back as soreness will be building today and tomorrow. Be seen for persistent and increasing pain that might be contributing to shortness of breath, uncontrolled pain. Can take acetaminophen and limited ibuprofen Medical Records Medical records reviewed: Yes I reviewed the patient's medical records Lab Data Lab results reviewed: Yes I reviewed the patient's lab results Labs: Lab Results 09/03/24 Range/Units 04:30 Urine Color Yellow (Yellow) Urine Appearance Clear (Clear) Urine pH 5.5 (5.0-8.5) Ur Specific [place] <= 1.005 (1.000-1.030) Urine Protein Negative (Negative) Urine Glucose (UA) 1+ A (Negative) Urine Ketones Negative (Negative) Urine Blood 1+ A (Negative) Urine Nitrite Negative (Negative) Urine Bilirubin Negative (Negative) Urine Urobilinogen 0.2 (0.2-1.0) Ur Leukocyte Esterase Negative (Negative) Urine RBC 0-2 (0-2) Urine WBC 0-2 (0-5) Ur Squamous Epith Cells None (None-Few) Urine Bacteria None (None) Discharge Plan Discharge Clinical Impression: Fall, Contusion, Hematoma Patient Disposition: Home w/ Parent or Adult Condition: Stable Additional Instructions: I would ice sore areas especially your right elbow couple of times daily over the next few days. Consider also keeping that right elbow wrapped somewhat to try to keep hematoma development to a minimum. See handout for some ideas for stretches for upper and lower back as soreness will be building today and tomorrow. Be seen for persistent and increasing pain that might be contributing to shortness of breath, uncontrolled pain. Can take acetaminophen and limited ibuprofen Prescriptions: No Action finasteride 5 mg tablet 2.5 mg PO QDAY Qty: 45 3RF dapagliflozin propanediol [Farxiga] 10 mg tablet 10 mg PO DAILY aspirin 81 mg tablet,chewable 1 tab PO DAILY Brilinta 90 mg tablet 90 mg PO BID nitroglycerin 0.4 mg tablet, sublingual sublingual metoprolol succinate 100 mg tablet extended release 24 hr 100 mg PO DAILY isosorbide mononitrate 30 mg tablet extended release 24 hr 30 mg PO DAILY rosuvastatin 20 mg tablet 20 mg PO QPM Qty: 90 3RF Rx Instructions: once daily for cholesterol (DME) blood-glucose meter [Blood Glucose Monitoring] Kit See Rx Instructions miscellaneous .MEDSUPPLY Qty: 1 0RF Rx Instructions: As directed (DME) Diabetic Test Strips Misc See Rx Instructions .MEDSUPPLY Qty: 100 3RF Rx Instructions: once daily for diabetes (DME) lancing device [lancing device with lancets] Misc See Rx Instructions .MEDSUPPLY Qty: 1 3RF Rx Instructions: As directed- once daily for diabetes (DME) lancets Misc See Rx Instructions .MEDSUPPLY Qty: 100 3RF Rx Instructions: once daily fluticasone propionate 50 mcg/actuation spray,suspension 2 spray intranasal QDAY PRN (Reason: allergy symptoms) Qty: 16 2RF Rx Instructions: administer into each nostril metformin 500 mg tablet extended release 24 hr 1,000 mg PO QDAY Qty: 180 3RF Rx Instructions: Take 2 tablets once daily for pre diabetes valsartan 80 mg tablet 80 mg PO Follow Up/Referrals: Kaylee Tavera PA-C [Primary Care Provider] - Stand Alone Forms: [facility] Info Instructions
--- OUTSIDE RECORDS SUMMARY | 2024-09-03 04:08 | XMS_ITS | Clinical Summary ---
Author Organization [facility] Address [place], [place] [address] Care Team Providers Care Rail Car Painter/Sandblaster Name Role Phone Kaylee Tavera PA-C Primary Care Provider + [phone] Allergies Active Allergy Reactions Criticality Noted Date [...] mupirocin 2% ointmentIndications :Coronary artery disease involving resighini coronary artery of resighini heart with unstable angina pectoris (HC) Using Q-tip, apply small amount to both nostrils evening before and morning of surgery 22 g 5 Active chlorhexidine (Peridex) 0.12 % solutionIndications :Coronary artery disease involving resighini coronary artery of resighini heart with unstable angina pectoris (HC) Swish and spit 15 ml by mouth the night before and on the morning of surgery 118 mL 5 Active ofloxacin 0.3 % ophthalmic (OCUFLOX) 0.3 % ophthalmic solution INSTILL 1 DROP IN LEFT EYE THREE TIMES DAILY 5 Active Active Problems Problem Noted Date Diagnosed Date Ischemic cardiomyopathy 05/25/2024 Coronary artery disease invo lving resighini coronary artery of resighini heart with unstable angina pectoris 05/24/2024 HTN (hypertension) 05/24/2024 Obesity 05/24/2024 Type 2 diabetes mellitus, wi thout long-term current use of insulin 05/24/2024 ST elevation myocardial infa rction involving right coronary artery 05/23/2024 Paroxysmal atrial fibrillation 02/08/2017 Candidiasis of mouth 08/02/2005 Dyslipidemia 08/02/2002 Overview (04/19/2006): 6 month, then qiut Alopecia, unspecified 08/02/1999 Encounters Date Type Department Care Team Description 08/30/2024 1:00 PM AERONAUTICAL DESIGN ENGINEER - 08/30/2024 11:59 PM AERONAUTICAL DESIGN ENGINEER Hospital Encounter [address] [address] 08/30/2024 Travel 08/29/2024 Hospital Encounter [facility] [address] [place] [address] Som Diaz MD 08/25/2024 7:30 AM AERONAUTICAL DESIGN ENGINEER - 08/25/2024 11:59 PM AERONAUTICAL DESIGN ENGINEER Hospital Encounter [address] [address] 08/25/2024 Telephone [facility] [address] [place] [address] Som Diaz MD Surgery Scheduled (Cancel / to reschedule) 08/24/2024 Telephone [facility] [address] [place] [address] Willis Taveras PA Results 08/24/2024 Telephone [facility] [address] [place] [address] Som Diaz MD Form (FMLA) 08/23/2024 1:30 PM AERONAUTICAL DESIGN ENGINEER Nurse/Clinic Staff Only [facility] [address] [place] [phone] Cardiovascular Diagnostic Testing (EKG was performed for consult with Dr. Diaz.) 08/23/2024 1:00 PM AERONAUTICAL DESIGN ENGINEER Office Visit [facility] [address] [place] [address] Som Diaz MD Consult (Patient reports he got eye infection in left eye and went to eye doctor on wednesday (08/21), eye doctor wondering if patient can take prednisone eye drop. ) 08/23/2024 7:30 AM AERONAUTICAL DESIGN ENGINEER - 08/23/2024 11:59 PM AERONAUTICAL DESIGN ENGINEER Hospital Encounter [address] [address] 08/23/2024 Travel 08/21/2024 Orders Only [facility] Scanner 1 scan: (1-Ord) [facility], 08/21/2024 08/21/2024 Telephone [facility] [address] [place] [address] Som Diaz MD Questions 08/18/2024 7:30 AM AERONAUTICAL DESIGN ENGINEER - 08/18/2024 11:59 PM AERONAUTICAL DESIGN ENGINEER Hospital Encounter [address] [address] 08/17/2024 8:57 AM AERONAUTICAL DESIGN ENGINEER - 08/17/2024 11:59 PM AERONAUTICAL DESIGN ENGINEER Hospital Encounter [facility] [address] [place] [address] Erika Contreras PA CAD, multiple vessel 08/17/2024 8:23 AM AERONAUTICAL DESIGN ENGINEER - 08/17/2024 8:56 AM AERONAUTICAL DESIGN ENGINEER Hospital Encounter [facility] [address] [place] [address] Som Diaz MD Coronary artery disease involving resighini coronary artery of resighini heart with unstable angina pectoris (HC) 08/17/2024 7:45 AM AERONAUTICAL DESIGN ENGINEER - 08/17/2024 8:22 AM AERONAUTICAL DESIGN ENGINEER Hospital Encounter [facility] [address] [place] [address] Erika Contreras PA CAD, multiple vessel; Ischemic cardiomyopathy 08/17/2024 Travel 08/14/2024 7:30 AM AERONAUTICAL DESIGN ENGINEER - 08/14/2024 11:59 PM AERONAUTICAL DESIGN ENGINEER Hospital Encounter [place] [address] [place] [address] 08/11/2024 7:30 AM AERONAUTICAL DESIGN ENGINEER - 08/11/2024 11:59 PM AERONAUTICAL DESIGN ENGINEER Hospital Encounter [place] [address] [facility] [place] [address] 08/09/2024 7:30 AM AERONAUTICAL DESIGN ENGINEER - 08/09/2024 11:59 PM AERONAUTICAL DESIGN ENGINEER Hospital Encounter [place] [address] [facility] [place] [address] 08/09/2024 Travel 08/04/2024 2:00 PM AERONAUTICAL DESIGN ENGINEER - 08/04/2024 11:59 PM AERONAUTICAL DESIGN ENGINEER Hospital Encounter [place] [address] [facility] [place] [address] 07/31/2024 7:30 AM AERONAUTICAL DESIGN ENGINEER - 07/31/2024 11:59 PM AERONAUTICAL DESIGN ENGINEER Hospital Encounter [place] [address] [place] [address] 07/31/2024 Telephone [facility] [address] [place] [address] Som Diaz MD Surgery Scheduled (Pre cardiac surgery planning) 07/28/2024 7:27 AM AERONAUTICAL DESIGN ENGINEER - 07/28/2024 11:59 PM AERONAUTICAL DESIGN ENGINEER Hospital Encounter [place] [address] [facility] [place] [address] 07/28/2024 Orders Only [facility] [address] [place] [address] Som Diaz MD <No scans attached> 07/20/2024 2:00 PM AERONAUTICAL DESIGN ENGINEER Telemedicine [facility] [address] [place] [address] Erika Contreras PA Follow Up 07/17/2024 7:30 AM AERONAUTICAL DESIGN ENGINEER - 07/17/2024 11:59 PM AERONAUTICAL DESIGN ENGINEER Hospital Encounter [place] [address] [place] [address] 06/28/2024 7:30 AM AERONAUTICAL DESIGN ENGINEER - 06/28/2024 11:59 PM AERONAUTICAL DESIGN ENGINEER Hospital Encounter [place] [address] [place] [address] 06/26/2024 7:30 AM AERONAUTICAL DESIGN ENGINEER - 06/26/2024 11:59 PM AERONAUTICAL DESIGN ENGINEER Hospital Encounter [place] [address] [place] [address] 06/23/2024 7:30 AM AERONAUTICAL DESIGN ENGINEER - 06/23/2024 11:59 PM AERONAUTICAL DESIGN ENGINEER Hospital Encounter [place] [address] [place] [address] 06/19/2024 7:30 AM AERONAUTICAL DESIGN ENGINEER - 06/19/2024 11:59 PM AERONAUTICAL DESIGN ENGINEER Hospital Encounter [place] [address] [place] [address] 06/19/2024 Travel 06/16/2024 7:30 AM AERONAUTICAL DESIGN ENGINEER - 06/16/2024 11:59 PM AERONAUTICAL DESIGN ENGINEER Hospital Encounter [place] [address] [place] [address] 06/14/2024 7:30 AM AERONAUTICAL DESIGN ENGINEER - 06/14/2024 11:59 PM AERONAUTICAL DESIGN ENGINEER Hospital Encounter [place] [address] [place] [address] 06/13/2024 9:06 AM AERONAUTICAL DESIGN ENGINEER - 06/13/2024 11:59 PM AERONAUTICAL DESIGN ENGINEER Hospital Encounter [place] [address] [facility] [place] [address] ST elevation myocardial infarction (STEMI) involving other coronary artery of inferior wall (HC) 06/13/2024 Travel 06/12/2024 7:30 AM AERONAUTICAL DESIGN ENGINEER - 06/12/2024 11:59 PM AERONAUTICAL DESIGN ENGINEER Hospital Encounter [address] [address] 06/07/2024 7:30 AM AERONAUTICAL DESIGN ENGINEER - 06/07/2024 11:59 PM [facility] Hospital Encounter [address] [address] 06/05/2024 2:30 PM AERONAUTICAL DESIGN ENGINEER Office Visit [facility] [address] [facility] [address] [facility] [address] [place] [address] Erika Contreras PA Follow Up ( 1-2WK [facility] F/U); Refill Request (Farxiga, metoprolol, valsartan and isosorbide ); Concerns (Pt denies chest discomfort, edema, sob, dizziness and palpitations at this time ); Medication Management (Per pt states that he wants to discuss about medications he is on (please advice)) 06/05/2024 7:30 AM AERONAUTICAL DESIGN ENGINEER - 06/05/2024 11:59 PM [facility] Hospital Encounter [address] [address] 06/05/2024 Travel 06/05/[address] [address] Mensing, Darby C from Last 3 Months [...] on file Legal Sex Male 6:38 AM AERONAUTICAL DESIGN ENGINEER Gender Identity Not on file Sexual Orientation Not on file Obstetrics History Last Filed Vital Signs Vital Sign Reading Time Taken Comments Blood Pressure 108/60 08/30/2024 1:00 PM AERONAUTICAL DESIGN ENGINEER Pulse 74 08/30/2024 1:00 PM AERONAUTICAL DESIGN ENGINEER Temperature 37.1 C (98.7 F) 05/25/2024 8:12 AM CDT Respiratory Rate 16 08/23/2024 1:10 PM AERONAUTICAL DESIGN ENGINEER Oxygen Saturation 96% 08/23/2024 1:10 PM AERONAUTICAL DESIGN ENGINEER Inhaled Oxygen Concentration - - Weight 94.3 kg (208 lb) 08/30/2024 1:00 PM AERONAUTICAL DESIGN ENGINEER Height 177.8 cm (5' 10) 08/30/2024 1:00 PM AERONAUTICAL DESIGN ENGINEER Body Mass Index 29.84 08/30/2024 1:00 PM AERONAUTICAL DESIGN ENGINEER Plan of Treatment Upcoming Encounters Date Type Department Care Team (Late st Contact Info) Description 09/04/2024 7:30 AM AERONAUTICAL DESIGN ENGINEER Appointment [address] [address] 09/06/2024 7:30 AM AERONAUTICAL DESIGN ENGINEER Appointment [address] [place] [address] 09/08/2024 7:30 AM AERONAUTICAL DESIGN ENGINEER Appointment [address] [place] [address] 09/11/2024 7:30 AM AERONAUTICAL DESIGN ENGINEER Appointment [address] [address] 09/13/2024 7:30 AM AERONAUTICAL DESIGN ENGINEER Appointment [address] [place] [address] Health Maintenance Due Date Last Done Comments [...] Diagnosis Comments SCAN-CARDIAC REHABILITATION 08/30/2024 1:08 PM AERONAUTICAL DESIGN ENGINEER SCAN-CARDIAC REHABILITATION 08/25/2024 7:40 AM AERONAUTICAL DESIGN ENGINEER EKG 12 LEAD Routine 08/23/2024 1:08 PM AERONAUTICAL DESIGN ENGINEER Coronary artery disease involving resighini coronary artery of resighini heart with unstable angina pectoris (HC) SCAN-CARDIAC REHABILITATION 08/23/2024 7:32 AM AERONAUTICAL DESIGN ENGINEER SCAN-EYE EXAM 08/21/2024 12:00 AM AERONAUTICAL DESIGN ENGINEER SCAN CORRESP-EKG RESULTS 08/18/2024 1:16 PM AERONAUTICAL DESIGN ENGINEER SCAN-CARDIAC REHABILITATION 08/18/2024 7:36 AM AERONAUTICAL DESIGN ENGINEER US VEIN MAPPING LOWER EXTREMITY BILATERAL Routine 08/17/2024 10:53 AM AERONAUTICAL DESIGN ENGINEER CAD, multiple vessel CTA CHEST - RAD DUAL READ Routine 08/17/2024 8:31 AM AERONAUTICAL DESIGN ENGINEER Coronary artery disease involving resighini coronary artery of resighini heart with unstable angina pectoris (HC) ECHO TTE LIMITED W CONTRAST Routine 08/17/2024 8:23 AM AERONAUTICAL DESIGN ENGINEER CAD, multiple vessel Ischemic cardiomyopathy CREATININE,ISTAT Routine 08/17/2024 8:13 AM AERONAUTICAL DESIGN ENGINEER SCAN-CARDIAC REHABILITATION 08/14/2024 7:37 AM AERONAUTICAL DESIGN ENGINEER SCAN-CARDIAC REHABILITATION 08/11/2024 8:33 AM AERONAUTICAL DESIGN ENGINEER SCAN-CARDIAC REHABILITATION 08/09/2024 7:35 AM AERONAUTICAL DESIGN ENGINEER SCAN-CARDIAC REHABILITATION 08/04/2024 2:08 PM AERONAUTICAL DESIGN ENGINEER SCAN-CARDIAC REHABILITATION 07/31/2024 7:38 AM AERONAUTICAL DESIGN ENGINEER SCAN-CARDIAC REHABILITATION 07/28/2024 7:31 AM AERONAUTICAL DESIGN ENGINEER SCAN-CARDIAC REHABILITATION 07/17/2024 7:35 AM AERONAUTICAL DESIGN ENGINEER SCAN-CARDIAC REHABILITATION 06/28/2024 7:36 AM AERONAUTICAL DESIGN ENGINEER SCAN-CARDIAC REHABILITATION 06/26/2024 7:37 AM AERONAUTICAL DESIGN ENGINEER SCAN-CARDIAC REHABILITATION 06/23/2024 7:36 AM AERONAUTICAL DESIGN ENGINEER SCAN-CARDIAC REHABILITATION 06/19/2024 7:39 AM AERONAUTICAL DESIGN ENGINEER SCAN-CARDIAC REHABILITATION 06/16/2024 7:39 AM AERONAUTICAL DESIGN ENGINEER SCAN-CARDIAC REHABILITATION 06/14/2024 7:36 AM AERONAUTICAL DESIGN ENGINEER HEMOGLOBIN Today 06/13/2024 9:17 AM AERONAUTICAL DESIGN ENGINEER ST elevation myocardial infarction (STEMI) involving other coronary artery of inferior wall (HC) BASIC METABOLIC PANEL Today 06/13/2024 9:17 AM AERONAUTICAL DESIGN ENGINEER ST elevation myocardial infarction (STEMI) involving other coronary artery of inferior wall (HC) SCAN-CARDIAC REHABILITATION 06/12/2024 7:32 AM AERONAUTICAL DESIGN ENGINEER SCAN-CARDIAC REHABILITATION 06/07/2024 7:33 AM AERONAUTICAL DESIGN ENGINEER SCAN-CARDIAC REHABILITATION 06/05/2024 7:36 AM AERONAUTICAL DESIGN ENGINEER SCAN-CARDIAC REHABILITATION 06/05/2024 7:36 AM AERONAUTICAL DESIGN ENGINEER LIPID PANEL GAVIN 05/23/2024 1:22 PM CDT from Last 3 Months or Most Recently Relevant to Health Maintenance Results * SCAN-CARDIAC REHABILITATION (08/30/2024 1:08 PM AERONAUTICAL DESIGN ENGINEER) Only the most recent of21 resultswithin the time period is included. us Scanner OTHER Final Result * EKG 12 LEAD (08/23/2024 1:08 PM AERONAUTICAL DESIGN ENGINEER) Interpretation Normal sinus rhythm Normal ECG Ventricular Rate 62 BPM Atrial Rate 62 BPM P-R Interval 166 ms QRS Duration 86 ms QT 418 ms QTc 424 ms P [place] 23 degrees R [place] 34 degrees T [place] 23 degrees 08/23/2024 1:08 PM AERONAUTICAL DESIGN ENGINEER 08/23/2024 3:03 PM AERONAUTICAL DESIGN ENGINEER us Som Diaz MD EKG ORD Final Res ult * SCAN-EYE EXAM (08/21/2024 12:00 AM AERONAUTICAL DESIGN ENGINEER) us Scanner OTHER Final Result * SCAN CORRESP-EKG RESULTS (08/18/2024 1:16 PM AERONAUTICAL DESIGN ENGINEER) Narrative 08/18/2024 1:16 PM AERONAUTICAL DESIGN ENGINEER Ordered by an unspecified provider. us Other Clinical Staff OTHER Final Resul t * US VEIN MAPPING LOWER EXTREMITY BILATERAL (08/17/2024 10:53 AM AERONAUTICAL DESIGN ENGINEER) Anatomical Region Laterality Modality LEGS, LEG L, LEG R Ultrasound 08/17/2024 10:1 3 AM AERONAUTICAL DESIGN ENGINEER Narrative 08/18/2024 1:03 PM AERONAUTICAL DESIGN ENGINEER VASCULAR ULTRASOUND REPORT BIANCA CERVANTES : 1970 Study Date: 08/17/2024 10:13:12 AM Age: 54 years Tech: AVEL Gender: M Referring MD: ERIKA CONTRERAS Site: [facility] Study performed: Vein mapping, (bilateral). Indication for [...] Accreditation Commission (IAC/Vascular), www.intersocietal.org/vascular Report generated by [employer]. Final Procedure Note Susana Frias MD - 08/18/2024 VASCULAR ULTRASOUND REPORT BIANCA CERVANTES : 1970 Study Date: 08/17/2024 10:13:12 AM Age: 54 years Tech: AVEL Gender: M Referring MD: ERIKA CONTRERAS Site: [facility] Study performed: Vein mapping, (bilateral). Indication for [...] theIntersocietal Accreditation Commission (IAC/Vascular),www.intersocietal.org/vascular Report generated by [employer]. Final us Erika SHER US Final Result * CTA CHEST - DUAL READ (08/17/2024 8:31 AM AERONAUTICAL DESIGN ENGINEER) Anatomical Region Laterality Modality CHEST Computed Tomogra phy Impressions 08/21/2024 4:38 PM AERONAUTICAL DESIGN ENGINEER No significant incidental extracardiac findings. Please refer to medical facilities section director's dictation for the cardiac CT report. Narrative 08/21/2024 4:38 PM AERONAUTICAL DESIGN ENGINEER Results are automatically released to your [employer]) account once available, in compliance with federal regulations. This means that you may see your results before your provider has had a chance to review them. Please allow 2-3 business days for your provider to comment on the results. CT ANGIOGRAM OF THE THORACIC AORTA, 08/17/2024 INDICATION: Coronary artery disease, pre-bypass surgery planning. CONCLUSIONS: This is a dual read study - please review [facility] over-read below for incidental non cardiac findings. Normal aortic root when indexed to body surface area, 41 mm in greatest dimension (Z score 1.7, rmov-wy-fsksto ratio 6.7 cm2/m). Normal dimensions of the [...] Image post processing was performed on a [employer] Workstation. Images were reconstructed at a slice [...] Bonilla MD Cardiology [facility] JJO/car For Patients: As a result of the Century Cures Act, medical imaging exams and procedure reports are released immediately into your electronic medical record. You may view this report before your referring provider. If you have questions, please contact your health care provider. EXAM: OVERREAD: DETAILED [facility] EXTRACARDIAC OVERREAD OF CARDIAC CT LOCATION: [facility] DATE: 08/17/2024 INDICATION: Coronary artery disease involving resighini coronary artery of resighini heart with unstable angina pectoris (HC). TECHNIQUE: Dose reduction techniques were used. COMPARISON: None. FINDINGS: LIMITED CHEST: Negative. LIMITED MEDIASTINUM: Fat-containing hiatal hernia. LIMITED UPPER ABDOMEN: Negative. us Som Diaz MD CT Final Res ult * ECHO TTE LIMITED W CONTRAST (08/17/2024 8:23 AM AERONAUTICAL DESIGN ENGINEER) EJECTION FRACTION 60-65% PROSOLV Anatomical Region Laterality Modality Ultrasound 08/17/2024 7:49 AM AERONAUTICAL DESIGN ENGINEER Narrative 08/17/2024 9:24 AM AERONAUTICAL DESIGN ENGINEER [address] [address] Main: Transthoracic Echo Report BIANCA CERVANTES Mitchellmisty ID: [id number] Age: 54 : 1970 Ordering Provider: ERIKA CONTRERAS Exam Date: 08/17/2024 07:49 Gender: M Social Work Associate: BRENDA Height: 70 in BSA: 2.14 m BP: 132 / 85 Weight: 212 lbs BMI: 30.4 kg/m HR: 60 Location: [facility] Rhythm: Normal Sinus Rhythm Procedure Components: Limited 2D imaging with contrast, Color Doppler, Limited Spectral Doppler Indications: Ischemic cardiomyopathy; CAD, multiple vessel Technical Quality: Fair Contrast: Definity Constrast Dose (ml): .30 [facility]#: [id number] Final Conclusion Previous Study: 05/23/2024 1. Limited [...] PERLA (r) 2.02 mmHg Umm Pineda MD [facility] Accredited Site (Electronically Signed) Final Date: 17 August 2024 09:24 ICD-10 Codes: I25.5; I25.10 Procedure Note Umm Pineda MD - 08/17/[address], [place] [address] Main: Transthoracic Echo Report BIANCA CERVANTES Mitchellmisty ID: [id number] Age: 54 : 1970 Ordering Provider: ERIKA CONTRERAS Exam Date: 08/17/2024 07:49 Gender: M Social Work Associate: BRENDA Height: 70 in BSA: 2.14 m BP: 132 / 85 Weight: 212 lbs BMI: 30.4 kg/m HR: 60 Location: [facility] Rhythm: Normal SinusRhythm Procedure Components: Limited 2D imaging with contrast, Color Doppler,Limited Spectral Doppler Indications: Ischemic cardiomyopathy; CAD, multiple vessel Technical Quality: Fair Contrast: Definity Constrast Dose (ml): .30 [facility]#: [id number] Final Conclusion Previous Study: 05/23/2024 1. Limited [...] PERLA (r) 2.02 mmHg Umm Pineda MD [facility] Accredited Site (Electronically Signed) Final Date: 17 August 2024 09:24 ICD-10 Codes: I25.5; I25.10 Erika SHER ECHO ORD Final Result * (ABNORMAL) CREATININE,ISTAT (08/17/2024 8:13 AM AERONAUTICAL DESIGN ENGINEER) CREATININE, POCT 1.20(H) 0.57 - 1.11 mg/dL 08/17/2024 8:19 AM AERONAUTICAL DESIGN ENGINEER [facility] Comment:Caution: Patients ta radha Hydroxyurea have falsely increased iStat Creatinine results. Verify creatinine results ordering a Creatinine (95195.2) eGFR 71(L) >90 mL/min/1.7 3m2 08/17/2024 8:19 AM AERONAUTICAL DESIGN ENGINEER [facility] Comment:As of 2021, eG FR is calculated by the CKD-EPI creatinine equation without race adjustment. eGFR can be influenced by muscle mass, exercise, and diet. The reported eGFR is an estimation only and is only applicable if the renal function is stable. Blood BLOOD SPECIMEN / Unknown 08/17/2024 8:13 AM AERONAUTICAL DESIGN ENGINEER 08/17/2024 8:19 AM AERONAUTICAL DESIGN ENGINEER Erika SHER CHEMISTRY Final Result [facility] SENDOUT INTERNAL [phone] [place] [address] * HEMOGLOBIN (06/13/2024 9:17 AM AERONAUTICAL DESIGN ENGINEER) HEMOGLOBIN 15.0 13.5 - 17.5 g/dL 06/13/2024 9:21 AM AERONAUTICAL DESIGN ENGINEER [facility] MCV 86 80 - 100 fL 06/13/2024 9:21 AM AERONAUTICAL DESIGN ENGINEER [facility] Blood BLOOD SPECIMEN / Unknown Venipuncture / Unknown 06/13/2024 9:17 AM AERONAUTICAL DESIGN ENGINEER 06/13/2024 9:17 AM AERONAUTICAL DESIGN ENGINEER Erika SHER HEMATOLOGY Final Result [facility] [address] [place] [address], [place] [phone] * (ABNORMAL) BASIC METABOLIC PANEL (06/13/2024 9:17 AM AERONAUTICAL DESIGN ENGINEER) SODIUM 136 136 - 145 mmol/L 06/13/2024 9:45 AM AERONAUTICAL DESIGN ENGINEER [facility] POTASSIUM 4.7 3.5 - 5.1 mmol/L 06/13/2024 9:45 AM AERONAUTICAL DESIGN ENGINEER [facility] CHLORIDE 101 98 - 107 mmol/L 06/13/2024 9:45 AM AERONAUTICAL DESIGN ENGINEER [facility] CO2,TOTAL 27 22 - 29 mmol/L 06/13/2024 9:45 AM AERONAUTICAL DESIGN ENGINEER [facility] ANION GAP 8 5 - 18 06/13/2024 9:45 AM AERONAUTICAL DESIGN ENGINEER [facility] GLUCOSE 123(H) 70 - 99 mg/dL 06/13/2024 9:45 AM AERONAUTICAL DESIGN ENGINEER [facility] CALCIUM 9.5 8.8 - 10.4 mg/dL 06/13/2024 9:45 AM AERONAUTICAL DESIGN ENGINEER [facility] Comment: Reference ranges for this test were updated on 06/06/2024 to reflect our healthy population more accurately. Reference range changes are not retroactively applied to results, but previous results using the same methodology can be interpreted in the context of the new reference range. BUN 22(H) 6 - 20 mg/dL 06/13/2024 9:45 AM AERONAUTICAL DESIGN ENGINEER [facility] CREATININE 0.99 0.70 - 1.20 mg/dL 06/13/2024 9:45 AM AERONAUTICAL DESIGN ENGINEER [facility] BUN/CREAT RATIO 22(H) 10 - 20 9:45 AM AERONAUTICAL DESIGN ENGINEER [facility] eGFR 90(L) >90 mL/min/1.7 3m2 06/13/2024 9:45 AM AERONAUTICAL DESIGN ENGINEER [facility] Comment:As of 2021, eG FR is calculated by the CKD-EPI creatinine equation without race adjustment. eGFR can be influenced by muscle mass, exercise, and diet. The reported eGFR is an estimation only and is only applicable if the renal function is stable. Blood BLOOD SPECIMEN / Unknown Venipuncture / Unknown 06/13/2024 9:17 AM AERONAUTICAL DESIGN ENGINEER 06/13/2024 9:17 AM AERONAUTICAL DESIGN ENGINEER Erika SHER CHEMISTRY Final Result [facility] [address] [place] [address], * LIPID PANEL (05/23/2024 1:22 PM CDT) Pathologist [facility] CHOLESTEROL,TOTAL 166 100 - 199 mg/dL 05/23/2024 3:56 PM [facility] Comment: Cholesterol, Total Reference Ranges Desirable <200 mg/dL Borderline 200-239 mg/dL High >=240 mg/dL TRIGLYCERIDES 36 <150 mg/dL 05/23/2024 3:56 PM [facility] HDL CHOLESTEROL 42 >40 mg/dL 3:56 PM [facility] NON-HDL CHOLESTEROL 124 <145 mg/dl 05/23/2024 3:56 PM [facility] CHOL/HDL RATIO 3.95 <4.50 05/23/2024 3:56 PM [facility] LDL CHOLESTEROL 117 <=130 mg/dL 05/23/2024 3:56 PM CDT [facility] VLDL CHOLESTEROL 7 <=30 mg/dL 05/23/20 3:56 PM CDT [facility] Blood BLOOD SPECIMEN / Unknown Venipuncture / Unknown 05/23/2024 1:22 PM CDT 05/23/2024 1:38 PM CDT us Milana Das IUSS ACOUSTIC ANALYST CHEMISTRY Final Result [facility] SENDOUT [place] [id number] [place] [address] from Last 3 Months or Most Recently Relevant to Health Maintenance Insurance [employer] CHOICE Advance Directives Documents on File Type Date Recorded Patient Preschool Director Expl anation Healthcare Directive 08/10/2024 025 * Full Code (Latest Code Status on File) Date Activated Date Inactivated Comments 05/23/2024 12:42 PM 05/25/2024 4:10 PM Question Answer Comments Code Status Discussion: Reviewed Preferences Care Teams Rail Car Painter/Sandblaster Relationship Specialty Start Date End Date Kaylee Tavera PA-C [address] [place] [address] PCP - General Emergency Medicine 05/23/24
--- OUTSIDE RECORDS SUMMARY | 2024-09-03 04:08 | XMS_ITS | Continuity of Care Document ---
Author Organization [facility] Address [address] [address] [place] [address] Phone Care Team Providers Care Heart Doctor Name Role Phone Fozia Simon MD Unavailable [...] Longer Active Procedures Procedure Date Offic/outpt E&m [facility] Advance Directives Directive Yes / No Effective Date File Name No Information Encounters Encounter Description Practice Location Reason(s) For Visit Diagnoses Date Provider Providers Copied on Encounter [facility], [address] [address], [place], [id number], [place] tel:[phone] [facility] No Information [address] [facility] [address] [facility], [place], [id number] , [place]. tel:[phone] Offic/outpt E&m [facility], [address] [address], [place], [id number], [place] tel:[phone] [facility] GI Symptoms or Concerns (chief complaint) Chronic GERDSleep apnea in adultDietary counseling and surveillanceEssentia l (primary) hypertension [facility] [address] [facility], [address], [place], [id number] , [place]. tel:[phone] Referring Provider: Kendall Carmona MD, [address] [facility] [place], [address]. tel:[phone] Family History Family Member Type Diagnosis Age At Onset Daughter Problem (finding) Alive and well Mother Problem (finding) malignant neoplasm of o vary Son Problem (finding) Alive and well Brother Problem (finding) Alive and well Payers Payer name Insurance type Covered libertarian ID Rosario clark(s) [employer] [id number] Social History Type Description Quantity Date Captured [...]
[2024-09-03 05:02] LABS: Appearance Urine Clear (Clear); Bilirubin Urine Negative (Negative); Blood Urine 1+ (Negative); Color Urine Yellow (Yellow); Glucose Urine 1+ (Negative); Ketones Urine Negative (Negative); Leukocyte Esterase Urine Negative (Negative); Nitrite Urine Negative (Negative); Protein Urine Negative (Negative); Specific Gravity Urine <= 1.005 (1.000-1.030); Urobilinogen Urine 0.2 (0.2-1.0); pH Urine 5.5 (5.0-8.5)
[2024-09-03 05:31] LABS: RBC Urine 0-2 (0-2); WBC Urine 0-2 (0-5)
[2024-09-03] MEDS: ACETAMINOPHEN 500 MG TABLET 1000 MG PO (05:46)
== END 2024-09-03 05:58 | disposition home or self-care (01) ==
PROVIDERS: Emergency Provider Family Medicine; PCP Physician Assistant Medical
DX: S50.01XA Contusion of right elbow, initial encounter (principal); M54.50 Low back pain, unspecified; W11.XXXA Fall on and from ladder, initial encounter
CPT/HCPCS: 81001; 99282; 99283; 99284; A9270

== ENCOUNTER 2024-09-27 10:30 | Outpatient (RCR) | payer OTHER, SELFPAY | END 2025-01-25 23:59 | disposition home or self-care (01) | PROVIDERS: PCP Physician Assistant Medical; Visit Provider Physician Assistant Medical | DX: M54.50 Low back pain, unspecified (principal); M54.2 Cervicalgia; M54.6 Pain in thoracic spine; Z51.89 Encounter for other specified aftercare | CPT/HCPCS: 97032; 97110; 97140; 97161 ==

== ENCOUNTER 2024-10-12 13:09 | Outpatient (CLI) | payer OTHER, SELFPAY | END 2024-10-12 13:10 | disposition home or self-care (01) | LOC: NFLDREF 10-16 01:20 | PROVIDERS: PCP Physician Assistant Medical; Referring Provider Physician Assistant Medical; Visit Provider Physician Assistant Medical | DX: N39.0 Urinary tract infection, site not specified (principal) | CPT/HCPCS: 87086 ==

== ENCOUNTER 2024-11-29 10:10 | Outpatient (CLI) | payer OTHER, SELFPAY | END 2024-11-29 10:11 | disposition home or self-care (01) | LOC: LKVREF 10:12 | PROVIDERS: PCP Physician Assistant Medical; Visit Provider Physician Assistant Medical | DX: I10 Essential (primary) hypertension (principal); I25.10 Atherosclerotic heart disease of native coronary artery without angina pectoris | CPT/HCPCS: 80053 ==

== ENCOUNTER 2025-02-26 09:39 | Outpatient (CLI) | payer OTHER, SELFPAY | END 2025-02-26 09:40 | disposition home or self-care (01) | LOC: NFLDREF 02-27 15:45 | PROVIDERS: PCP Physician Assistant Medical; Referring Provider Physician Assistant Medical; Visit Provider Physician Assistant Medical | DX: R73.03 Prediabetes (principal); E78.5 Hyperlipidemia, unspecified; I10 Essential (primary) hypertension; Z12.5 Encounter for screening for malignant neoplasm of prostate | CPT/HCPCS: 80053; 80061; G0103 ==

== ENCOUNTER 2025-05-17 09:39 | Outpatient (CLI) | payer OTHER, SELFPAY | END 2025-05-17 09:40 | disposition home or self-care (01) | LOC: NFLDREF 06-01 02:01 | PROVIDERS: PCP Physician Assistant Medical; Referring Provider Physician Assistant Medical; Visit Provider Physician Assistant Medical | DX: E78.5 Hyperlipidemia, unspecified (principal) | CPT/HCPCS: 80061 ==

== ENCOUNTER 2025-07-02 13:48 | Outpatient (CLI) | payer OTHER, SELFPAY | END 2025-07-02 13:49 | disposition home or self-care (01) | LOC: US 13:49 | PROVIDERS: PCP Physician Assistant Medical; Visit Provider Physician Assistant Medical | DX: I73.9 Peripheral vascular disease, unspecified (principal) | CPT/HCPCS: 93922 ==

== ENCOUNTER 2025-07-20 07:40 | Outpatient (CLI) | payer OTHER, SELFPAY | END 2025-07-20 07:41 | disposition home or self-care (01) | LOC: NFLDREF 07-27 06:46 | PROVIDERS: PCP Physician Assistant Medical; Referring Provider Physician Assistant Medical; Visit Provider Physician Assistant Medical | DX: E78.5 Hyperlipidemia, unspecified (principal) | CPT/HCPCS: 80061 ==